=== PATIENT | female | born 1940 | race Caucasian/White ===

== ENCOUNTER 2017-09-16 07:40 | Emergency (ER) | payer MEDICARE, SELFPAY ==
[2017-09-16 07:55] VITALS: BP 157/100; PULSE 86; PULSE 98; RESP 18; TEMP 36.7; O2SAT 98; BMI 26.5
--- NOTE | 2017-09-16 08:12 | ED.EXTPRO ---
HPI - Extremity Problem General Chief complaint: Extremity Problem,Nontraumatic Stated complaint: PAIN IN LT SHOULDER Time Seen by Provider: 09/16/17 08:36 Source: patient Mode of arrival: ambulatory Limitations: no limitations History of Present Illness HPI Narrative: A 77-year-old female with no previous shoulder problems presents with posterior left shoulder pain after working in her garden doing significant amount of pruning this last weekend. Yesterday she felt a pinched nerve in the neck and through the night it became more concentrated in the back of her left shoulder and is worse with movement. She has no pain when not moving the arm. Pain radiates down into her forearm Complaint: extremity pain Onset (ago): day(s) Pain Consistency: intermittent Location: left Quality: aching Radiation: none Relieving factors: immobilization Exacerbating factors: range of motion Associated symptoms: denies other symptoms Related Data Home Medications Medication Instructions Recorded Confirmed CALCIUM/VITAMIN D (CALCIUM + D 1 tab PO #0 11/17/10 500MG/125UNITS) [EMBREL] #0 11/17/10 Previous Rx's Medication Instructions Recorded desloratadine 5 mg PO QDAY #90 tab 10/15/16 clindamycin phosphate 0 TOPICAL BID #60 ml 11/10/16 lovastatin 20 mg PO HS #30 tab 04/08/17 Disabled Parking Permit / . #1 06/28/17 cyanocobalamin (vitamin B-12) 1,000 mcg IM MONTHLY #3 ea 06/30/17 letrozole [Femara] 2.5 mg PO Q DAY #90 tab 07/25/17 Allergies Allergy/AdvReac Type Severity Reaction Status Date / Time tuberculin, purified protein Allergy Mild Rash Verified 09/16/17 08:56 deriva Sulfa (Sulfonamide AdvReac Mild GI UPSET Verified 09/16/17 08:04 Antibiotics) [SULFA (SULFONAMIDE ANTIBIOTICS)] Review of Systems Review of Systems All systems reviewed & are unremarkable except as noted in HPI and below PFSH Surgical History History of cataract removal with insertion of prosthetic lens Social History Smoking Status: Former smoker Exam Initial Vital Signs Initial Vital Signs: Vital Signs Temperature 98.0 F 09/16/17 07:55 Pulse Rate 98 H 09/16/17 07:55 Respiratory Rate 18 09/16/17 07:55 Blood Pressure 157/100 H 09/16/17 07:55 Pulse Oximetry 98 09/16/17 07:55 Const General: cooperative and well developed Nutritional Appearance: well nourished Orientation: alert, awake, oriented x3 and not confused [facility] Head: normocephalic and atraumatic Ears: external ears normal and TM's normal bilaterally Nose: external nose normal and No nasal discharge Face and sinus: sinuses nontender, face symmetric, no sinus tenderness and No dry mucous membranes Mouth: oral mucosae normal and moist mucous membranes Teeth and gingiva: dentition normal Throat: tonsils normal and uvula midline Eyes General: appearance normal, both eyes and all related structures Eyelids: eyelids normal Conjunctivae: conjunctivae normal Sclera: sclerae normal Pupils: PERRL EOM: EOM intact bilaterally Neck Neck: normal visual inspection, trachea midline, No lymphadenopathy, No midline deformity and No JVD Lymphatic: No lymphedema Chest Chest: normal inspection of the chest Resp Effort & Inspection: normal respiratory effort, able to speak in complete sentences, no respiratory distress and no use of accessory muscles Auscultation: clear to auscultation bilaterally, no rales, no rhonchi and no wheezes Cardio Rate: regular rate Rhythm: regular rhythm Heart Sounds: no click, no gallops, no murmurs and no rubs Pulses: normal peripheral pulses GI Inspection: non-distended Palpation: soft, no hepatosplenomegaly, No guarding, No pulsatile mass and No tender Auscultation: normal bowel sounds Back/Spine/Pelvis Back: No CVA tenderness Cervical Spine: cervical ROM normal and No pain with cervical ROM Thoracic/Lumbar Spine: thoracic and lumbar spine normal to inspection Skin General: no rashes or lesions noted, No jaundice and No petechiae Neuro General: alert, oriented x3, gait normal and no focal motor deficits Cranial Nerves: CN's II-XI intact bilaterally Speech: speech normal Motor: strength 5/5 throughout Sensory Exam: no sensory deficits noted Extrem General: full ROM, no clubbing, cyanosis or edema, no pedal edema and no calf tenderness Other: Left shoulder without swelling. Nontender to palpation over the AC joint. Rotator cuff is strong bilaterally to resistance noted. Positive impingement sign. Negative Spurling's test bilaterally Psych Appearance: well kempt Mental Status: mental status grossly normal Attitude: cooperative Thought Content: normal and suicidality Judgment: judgment good Course Orders Ordered: ED Orders 09/16/17 08:19 XR shoulder LT min 2V Stat Discontinued Medications Triamcinolone (Kenalog-40) 40 mg IM NOW ONE Stop: 09/16/17 08:54 Vital Signs - 8 hr 09/16/17 07:55 Temperature 98.0 F Pulse Rate 86 Pulse Rate [Left Radial] 98 H Respiratory Rate 18 Blood Pressure 157/100 H Pulse Oximetry 98 MDM - Extremity (Nontraumatic) Imaging Data shoulder xray: Radiologist's impression: PROCEDURE: XR SHOULDER LT MIN 2V INDICATIONS: Shoulder pain TECHNIQUE: 4 views of the shoulder were acquired. COMPARISON: None. FINDINGS: Bones: No fractures or dislocations. No suspicious bony lesions. There is mild sclerosis in the inferior glenoid neck that is nonspecific. Visualized ribs appear intact. Soft tissues: No suspicious soft tissue calcifications. IMPRESSION: No acute bony abnormality or soft tissue calcifications. Dictated by: Channing Rhodes M.D. on 09/16/2017 at 8:42 Approved by: Channing Rhodes M.D. on 09/16/2017 at 8:43 [facility] Narrative Medical decision making narrative: 77-year-old female presenting with left shoulder pain that is musculoskeletal in nature, worse with movement and better when not using her arm. Certain motions seem to exacerbate the pain and her exam is consistent with left shoulder impingement, likely irritated by her gardening/pruning work that she did through the weekend. Her x-ray shows no acute abnormality. A subacromial left shoulder injection was performed and there was improvement in her symptoms. Advised close primary care follow-up. Physical therapy may be of benefit to her. I do not suspect cervical radiculopathy based on her exam nor do I suspect any sort of acute coronary syndrome radiating to the left shoulder as it is exacerbated by only movement in certain positions. As there is not a template for the injection procedure please see the below note. Left subacromial shoulder injection Verbal consent was obtained from the patient. Lidocaine 1% 3 mL mixed with Kenalog 40 mg per mL, 1 mL was introduced into the left subacromial space and a fan like fashion from a posterior approach. Skin was cleansed with chlorhexidine prior to procedure. Adhesive bandage was placed when procedure was complete. Improvement was noted on re-evaluation of her shoulder. Discharge Plan Departure Patient Disposition: Home, Self-Care Clinical Impression: Impingement syndrome of left shoulder Instructions: DI for Shoulder Pain Activity Restrictions/Additional Instructions: Thank you for trusting is with your care today. I do not suspect a dangerous cause for your symptoms and believe that impingement is the cause of your left shoulder pain. Shoulder injection was performed today without complication. Please follow-up with your primary care within 1 week for re-evaluation. Physical therapy may be beneficial. Return to the ER for new or worsening symptoms. Prescriptions: No Action CALCIUM/VITAMIN D (CALCIUM + D 500MG/125UNITS) 1 tab PO Qty: 0 RF: 0 [EMBREL] Qty: 0 RF: 0 desloratadine 5 MG tablet 5 mg PO QDAY Qty: 90 RF: 3 clindamycin phosphate 1 % lotion Topical BID Qty: 60 RF: 0 lovastatin 20 MG tablet 20 mg PO HS Qty: 30 RF: 1 Disabled Parking Permit . Qty: 1 RF: 0 cyanocobalamin (vitamin B-12) 1,000 MCG/1 ML solution 1,000 mcg IM MONTHLY Qty: 3 RF: 1 letrozole [Femara] 2.5 MG tablet 2.5 mg PO Q DAY Qty: 90 RF: 2
--- NOTE | 2017-09-16 08:19 | DI.RAD.S_ITS ---
PROCEDURE: XR SHOULDER LT MIN 2V INDICATIONS: Shoulder pain TECHNIQUE: 4 views of the shoulder were acquired. COMPARISON: None. FINDINGS: Bones: No fractures or dislocations. No suspicious bony lesions. There is mild sclerosis in the inferior glenoid neck that is nonspecific. Visualized ribs appear intact. Soft tissues: No suspicious soft tissue calcifications. IMPRESSION: No acute bony abnormality or soft tissue calcifications. Dictated by: Channing Rhodes M.D. on 09/16/2017 at 8:42 Approved by: Channing Rhodes M.D. on 09/16/2017 at 8:43
[2017-09-16] MEDS: TRIAMCINOLONE 40 MG/ML VIAL IM (09:27)
[2017-09-16 09:44] VITALS: BP 146/84; PULSE 67; RESP 14; O2SAT 99
== END 2017-09-16 10:03 | disposition home or self-care (01) ==
PROVIDERS: Emergency Provider Emergency Medicine; PCP Family Medicine
DX: M75.42 Impingement syndrome of left shoulder (principal)
CPT/HCPCS: 73030; 96372; 99282; 99283

== ENCOUNTER → 2017-12-28 16:06 | Outpatient (CLI) | payer MEDICARE, SELFPAY ==
[2017-12-28 17:25] LABS: Add Manual Diff / Slide Review NO; Basophils Percent Auto 0.6 % (0-2); Eosinophils Percent Auto 1.1 % (2-4); Hematocrit 44.7 % (36-46); Hemoglobin 15.2 g/dL (12.0-16.0); Mean Corpuscular Hemoglobin 33.1 PG (26-34); Mean Corpuscular Volume 97.4 fL (80-100); Monocytes Percent Auto 8.3 % (3-14); Neutrophils Absolute Auto 3200 /uL (3000-5900); Platelet Count 186 X10^3/uL (150-400); Red Blood Cell Count 4.58 X10^6/uL (4.0-5.2); Red Cell Distribution Width 14.4 % (11.6-14.8); White Blood Cell Count 5.3 X10^3/uL (4.5-11.0)
[2017-12-28 18:09] LABS: Alanine Aminotransferase 19 IU/L (9-52); Albumin 4.4 g/dL (3.5-5.0); Albumin Globulin Ratio 1.4 (1.0-2.8); Alkaline Phosphatase 69 U/L (38-126); Aspartate Aminotransferase 36 IU/L (14-36); Blood Urea Nitrogen 20 mg/dL (7-17); Calcium 9.4 mg/dL (8.4-10.2); Carbon Dioxide 29 mmol/L (22-32); Chloride 104 mmol/L (98-107); Cholesterol 204 mg/dL (140-199); Estimated Glomerular Filt Rate > 60.0 mL/min (>60); Globulin 3.2 g/dL (1.7-4.1); Glucose 78 mg/dL (80-110); HDL Cholesterol 88 mg/dL (40-60); HEMOLYSIS < 15 (0-50); LDL Cholesterol Calculated 99 mg/dL (<100); Potassium 3.9 mmol/L (3.4-5.1); Sodium 143 mmol/L (137-145); Total Protein 7.6 g/dL (6.3-8.2); Triglycerides 86 mg/dL (35-150)
[2017-12-28 18:41] LABS: Thyroid Stimulating Hormone 0.79 uIU/mL (0.47-4.68)
[2017-12-28 18:58] LABS: Vitamin B12 635 pg/mL (239-931)
== END ==
PROVIDERS: PCP Family Medicine; Visit Provider Family Medicine
DX: E78.2 Mixed hyperlipidemia (principal); I10 Essential (primary) hypertension
CPT/HCPCS: 36415; 80053; 80061; 82607; 84443; 85025

== ENCOUNTER → 2018-02-16 10:34 | Outpatient (CLI) | payer MEDICARE, SELFPAY ==
[2018-02-16 11:50] LABS: Alanine Aminotransferase 23 IU/L (9-52); Albumin 4.1 g/dL (3.5-5.0); Albumin Globulin Ratio 1.4 (1.0-2.8); Alkaline Phosphatase 68 U/L (38-126); Aspartate Aminotransferase 29 IU/L (14-36); BUN Creatinine Ratio 22.5 (6-22); Bilirubin Total 0.8 mg/dL (0.2-1.3); Blood Urea Nitrogen 18 mg/dL (7-17); Calcium 9.3 mg/dL (8.4-10.2); Carbon Dioxide 29 mmol/L (22-32); Chloride 106 mmol/L (98-107); Estimated Glomerular Filt Rate > 60.0 mL/min (>60); Glucose 66 mg/dL (80-110); HEMOLYSIS < 15 (0-50); Potassium 4.3 mmol/L (3.4-5.1); Sodium 145 mmol/L (137-145); Total Protein 7.1 g/dL (6.3-8.2)
== END ==
PROVIDERS: PCP Family Medicine; Visit Provider Internal Medicine Rheumatology
DX: Z79.899 Other long term (current) drug therapy (principal); M05.9 Rheumatoid arthritis with rheumatoid factor, unspecified
CPT/HCPCS: 36415; 80053

== ENCOUNTER → 2018-03-15 08:00 | Outpatient (CLI) | payer MEDICARE, SELFPAY | PROVIDERS: PCP Family Medicine | DX: Z23 Encounter for immunization (principal) | CPT/HCPCS: 90471; 90662 ==

== ENCOUNTER → 2018-08-11 07:35 | Outpatient (CLI) | payer MEDICARE, SELFPAY ==
--- NOTE | 2018-08-11 | DI.MG.S_ITS ---
BILATERAL DIGITAL SCREENING MAMMOGRAM 3D/2D WITH CAD POST LUMPECTOMY: 08/11/2018 CLINICAL: Routine screening. Personal history of right breast cancer. Comparison is made to exams dated: 08/03/2017 mammogram, 07/26/2016 mammogram, and 07/22/2015 mammogram - [facility]. There are scattered fibroglandular elements in both breasts. Current study was also evaluated with a Computer Aided Detection (CAD) system. There are benign post operative findings in the right breast. There also are benign calcifications in both breasts. No significant masses, calcifications, or other findings are seen in either breast. There has been no significant interval change. IMPRESSION: There is no mammographic evidence of malignancy. A 1 year screening mammogram is recommended. This exam was interpreted at Station ID: [id number]. NOTE: For mammograms, a report in lay terms will be sent to the patient. Approximately 15% of breast malignancies will not be visualized mammographically. In the management of a palpable breast mass, a negative mammogram must not discourage biopsy of a clinically suspicious lesion. Electronically Signed By: Tariq parkinson/gosia:08/11/2018 19:33:50 copy to: Ryan Rodney letter sent: Normal Exam ACR BI-RADS Category 2: Benign Finding(s) 3342F
== END ==
PROVIDERS: PCP Family Medicine; Visit Provider Family Medicine
DX: Z12.31 Encounter for screening mammogram for malignant neoplasm of breast (principal); Z85.3 Personal history of malignant neoplasm of breast
CPT/HCPCS: 77063; 77067

== ENCOUNTER → 2018-09-06 08:27 | Outpatient (CLI) | payer MEDICARE, SELFPAY ==
[2018-09-06 10:13] LABS: Add Manual Diff / Slide Review NO; Basophils Absolute Auto 0 /uL (0-100); Basophils Percent Auto 1.2 % (0-2); Eosinophils Absolute Auto 100 /uL (0-450); Lymphocytes Absolute Auto 1200 /uL (1100-4500); Mean Corpuscular HGB Conc 33.4 % (30-36); Mean Corpuscular Volume 95.8 fL (80-100); Monocytes Absolute Auto 300 /uL (0-900); Monocytes Percent Auto 9.6 % (3-14); Neutrophils Absolute Auto 1700 /uL (1500-7000); Neutrophils Percent Auto 52.2 % (50-75); Platelet Count 178 X10^3/uL (150-400); Red Cell Distribution Width 14.5 % (11.6-14.8); White Blood Cell Count 3.3 X10^3/uL (4.5-11.0)
[2018-09-06 10:46] LABS: Alanine Aminotransferase 19 IU/L (9-52); Albumin 4.1 g/dL (3.5-5.0); Albumin Globulin Ratio 1.5 (1.0-2.8); Alkaline Phosphatase 73 U/L (38-126); Aspartate Aminotransferase 25 IU/L (14-36); BUN Creatinine Ratio 25.7 (6-22); Bilirubin Total 0.9 mg/dL (0.2-1.3); Blood Urea Nitrogen 18 mg/dL (7-17); Calcium 9.3 mg/dL (8.4-10.2); Carbon Dioxide 28 mmol/L (22-32); Chloride 105 mmol/L (98-107); Estimated Glomerular Filt Rate > 60.0 mL/min (>60); Globulin 2.8 g/dL (1.7-4.1); Glucose 87 mg/dL (80-110); HEMOLYSIS < 15 (0-50); Potassium 4.6 mmol/L (3.4-5.1); Sodium 140 mmol/L (137-145); Total Protein 6.9 g/dL (6.3-8.2)
[2018-09-06 10:49] LABS: C-Reactive Protein Quant < 0.5 mg/dL (<1.0)
[2018-09-06 10:53] LABS: Erythrocyte Sedimentation Rate 12 MM/HR (0-20)
== END ==
PROVIDERS: Family Provider Family Medicine; PCP Family Medicine; Visit Provider Internal Medicine Rheumatology
DX: M05.9 Rheumatoid arthritis with rheumatoid factor, unspecified (principal)
CPT/HCPCS: 36415; 80053; 85025; 85651; 86140

== ENCOUNTER → 2018-10-05 09:06 | Outpatient (CLI) | payer MEDICARE, SELFPAY ==
[2018-10-05 09:35] LABS: Add Manual Diff / Slide Review NO; Basophils Absolute Auto 0 /uL (0-100); Basophils Percent Auto 1.3 % (0-2); Eosinophils Absolute Auto 100 /uL (0-450); Eosinophils Percent Auto 3.2 % (2-4); Hematocrit 44.2 % (36-46); Hemoglobin 14.9 g/dL (12.0-16.0); Lymphocytes Absolute Auto 1000 /uL (1100-4500); Lymphocytes Percent Auto 33.3 % (25-40); Mean Corpuscular HGB Conc 33.7 % (30-36); Monocytes Absolute Auto 300 /uL (0-900); Monocytes Percent Auto 10.7 % (3-14); Neutrophils Absolute Auto 1600 /uL (1500-7000); Neutrophils Percent Auto 51.5 % (50-75); Platelet Count 173 X10^3/uL (150-400); Red Blood Cell Count 4.66 X10^6/uL (4.0-5.2); Red Cell Distribution Width 14.4 % (11.6-14.8); White Blood Cell Count 3.1 X10^3/uL (4.5-11.0)
[2018-10-05 09:49] LABS: Alanine Aminotransferase 18 IU/L (9-52); Albumin 4.2 g/dL (3.5-5.0); Albumin Globulin Ratio 1.3 (1.0-2.8); Alkaline Phosphatase 71 U/L (38-126); Aspartate Aminotransferase 25 IU/L (14-36); BUN Creatinine Ratio 22.9 (6-22); Bilirubin Total 0.9 mg/dL (0.2-1.3); Blood Urea Nitrogen 16 mg/dL (7-17); Calcium 9.5 mg/dL (8.4-10.2); Carbon Dioxide 30 mmol/L (22-32); Chloride 104 mmol/L (98-107); Estimated Glomerular Filt Rate > 60.0 mL/min (>60); Globulin 3.2 g/dL (1.7-4.1); Glucose 78 mg/dL (80-110); HEMOLYSIS < 15 (0-50); Potassium 4.1 mmol/L (3.4-5.1); Sodium 141 mmol/L (137-145); Total Protein 7.4 g/dL (6.3-8.2)
[2018-10-05 10:49] LABS: Hepatitis B Surface Antigen NEGATIVE s/c (NEGATIVE)
[2018-10-05 11:09] LABS: Hep C Virus Ab w/Reflex Quant NEGATIVE s/c (NEGATIVE)
[2018-10-08 10:18] LABS: Mitogen-NIL 7.76 IU/mL; NIL 0.04 IU/mL; QuantiFERON TB NEGATIVE (Negative); TB1-NIL < 0.01 IU/mL; TB2-NIL < 0.01 IU/mL
== END ==
PROVIDERS: Family Provider Family Medicine; PCP Family Medicine; Visit Provider Internal Medicine Rheumatology
DX: M05.79 Rheumatoid arthritis with rheumatoid factor of multiple sites without organ or systems involvement (principal)
CPT/HCPCS: 36415; 80053; 85025; 86480; 86803; 87340

== ENCOUNTER → 2018-10-30 10:27 | Outpatient (CLI) | payer MEDICARE, SELFPAY ==
--- NOTE | 2018-10-30 | DI.RAD.S_ITS ---
PROCEDURE: XR CHEST 2V INDICATIONS: COUGH TECHNIQUE: 2 views of the chest were acquired. COMPARISON: [facility], , CHEST 2 VIEW, 02/22/2011, 11:58. FINDINGS: Surgical changes and devices: None. Lungs and pleura: Lungs are clear. No pleural effusions or pneumothorax. Mediastinum: Mediastinal contours are normal. Heart size is normal. Bones and chest wall: No suspicious bony abnormalities. Soft tissues appear unremarkable. IMPRESSION: No acute disease Dictated by: Shravan Aguilar M.D. on 10/30/2018 at 13:11 Approved by: Shravan Aguilar M.D. on 10/30/2018 at 13:12
== END ==
PROVIDERS: PCP Family Medicine; Visit Provider Internal Medicine Rheumatology
DX: R05 Cough (principal)
CPT/HCPCS: 71046

== ENCOUNTER → 2018-11-08 07:17 | Outpatient (CLI) | payer MEDICARE, SELFPAY ==
[2018-11-08 07:53] LABS: Add Manual Diff / Slide Review NO; Basophils Absolute Auto 0 /uL (0-100); Basophils Percent Auto 0.8 % (0-2); Eosinophils Absolute Auto 100 /uL (0-450); Eosinophils Percent Auto 2.4 % (2-4); Hematocrit 43.3 % (36-46); Hemoglobin 14.8 g/dL (12.0-16.0); Lymphocytes Absolute Auto 1200 /uL (1100-4500); Lymphocytes Percent Auto 26.3 % (25-40); Mean Corpuscular HGB Conc 34.1 % (30-36); Mean Corpuscular Hemoglobin 31.9 PG (26-34); Mean Corpuscular Volume 93.6 fL (80-100); Monocytes Absolute Auto 400 /uL (0-900); Monocytes Percent Auto 8.4 % (3-14); Neutrophils Absolute Auto 2800 /uL (1500-7000); Neutrophils Percent Auto 62.1 % (50-75); Platelet Count 197 X10^3/uL (150-400); Red Blood Cell Count 4.63 X10^6/uL (4.0-5.2); White Blood Cell Count 4.5 X10^3/uL (4.5-11.0)
[2018-11-08 08:15] LABS: Erythrocyte Sedimentation Rate 23 MM/HR (0-20)
[2018-11-08 08:17] LABS: Alanine Aminotransferase 12 IU/L (9-52); Albumin Globulin Ratio 1.3 (1.0-2.8); Alkaline Phosphatase 77 U/L (38-126); Aspartate Aminotransferase 20 IU/L (14-36); Bilirubin Total 0.9 mg/dL (0.2-1.3); Blood Urea Nitrogen 21 mg/dL (7-17); C-Reactive Protein Quant 0.6 mg/dL (<1.0); Calcium 9.5 mg/dL (8.4-10.2); Carbon Dioxide 23 mmol/L (22-32); Chloride 110 mmol/L (98-107); Estimated Glomerular Filt Rate > 60.0 mL/min (>60); Globulin 3.1 g/dL (1.7-4.1); Glucose 90 mg/dL (80-110); HEMOLYSIS < 15 (0-50); Potassium 4.3 mmol/L (3.4-5.1); Sodium 142 mmol/L (137-145); Total Protein 7.1 g/dL (6.3-8.2)
== END ==
PROVIDERS: Family Provider Family Medicine; PCP Family Medicine; Visit Provider Internal Medicine Rheumatology
DX: M05.9 Rheumatoid arthritis with rheumatoid factor, unspecified (principal)
CPT/HCPCS: 36415; 80053; 85025; 85651; 86140

== ENCOUNTER → 2018-11-29 09:37 | Outpatient (CLI) | payer MEDICARE, SELFPAY | PROVIDERS: Family Provider Family Medicine; PCP Family Medicine; Visit Provider Family Medicine | DX: M81.0 Age-related osteoporosis without current pathological fracture (principal); M85.80 Other specified disorders of bone density and structure, unspecified site; Z78.0 Asymptomatic menopausal state | CPT/HCPCS: 77080 ==

== ENCOUNTER → 2019-01-03 08:45 | Outpatient (CLI) | payer MEDICARE, SELFPAY ==
[2019-01-03 09:12] LABS: Add Manual Diff / Slide Review NO; Basophils Absolute Auto 0 /uL (0-100); Basophils Percent Auto 0.8 % (0-2); Eosinophils Absolute Auto 100 /uL (0-450); Eosinophils Percent Auto 1.9 % (2-4); Hematocrit 42.1 % (36-46); Hemoglobin 14.5 g/dL (12.0-16.0); Lymphocytes Absolute Auto 1100 /uL (1100-4500); Lymphocytes Percent Auto 33.4 % (25-40); Mean Corpuscular HGB Conc 34.5 % (30-36); Mean Corpuscular Hemoglobin 32.6 PG (26-34); Mean Corpuscular Volume 94.6 fL (80-100); Monocytes Absolute Auto 300 /uL (0-900); Monocytes Percent Auto 7.9 % (3-14); Neutrophils Absolute Auto 1800 /uL (1500-7000); Platelet Count 183 X10^3/uL (150-400); Red Blood Cell Count 4.45 X10^6/uL (4.0-5.2); Red Cell Distribution Width 14.7 % (11.6-14.8); White Blood Cell Count 3.2 X10^3/uL (4.5-11.0)
[2019-01-03 09:25] LABS: C-Reactive Protein Quant 0.5 mg/dL (<1.0)
[2019-01-03 10:11] LABS: Erythrocyte Sedimentation Rate 21 MM/HR (0-20)
== END ==
PROVIDERS: PCP Family Medicine; Visit Provider Internal Medicine Rheumatology
DX: M05.9 Rheumatoid arthritis with rheumatoid factor, unspecified (principal); Z79.899 Other long term (current) drug therapy
CPT/HCPCS: 36415; 85025; 85651; 86140

== ENCOUNTER → 2019-02-03 08:40 | Outpatient (CLI) | payer MEDICARE, SELFPAY ==
[2019-02-03 09:48] LABS: Add Manual Diff / Slide Review NO; Basophils Absolute Auto 0 /uL (0-100); Basophils Percent Auto 0.5 % (0-2); Eosinophils Absolute Auto 0 /uL (0-450); Eosinophils Percent Auto 0.7 % (2-4); Hematocrit 44.2 % (36-46); Hemoglobin 14.8 g/dL (12.0-16.0); Lymphocytes Absolute Auto 2200 /uL (1100-4500); Lymphocytes Percent Auto 42.7 % (25-40); Mean Corpuscular HGB Conc 33.6 % (30-36); Mean Corpuscular Hemoglobin 32.4 PG (26-34); Mean Corpuscular Volume 96.6 fL (80-100); Monocytes Absolute Auto 400 /uL (0-900); Monocytes Percent Auto 7.7 % (3-14); Neutrophils Absolute Auto 2500 /uL (1500-7000); Neutrophils Percent Auto 48.4 % (50-75); Platelet Count 190 X10^3/uL (150-400); Red Blood Cell Count 4.57 X10^6/uL (4.0-5.2); White Blood Cell Count 5.2 X10^3/uL (4.5-11.0)
== END ==
PROVIDERS: Family Provider Family Medicine; PCP Family Medicine; Visit Provider Internal Medicine Rheumatology
DX: M05.79 Rheumatoid arthritis with rheumatoid factor of multiple sites without organ or systems involvement (principal); Z79.899 Other long term (current) drug therapy
CPT/HCPCS: 36415; 85025

== ENCOUNTER → 2019-02-08 18:03 | Outpatient (CLI) | payer MEDICARE, SELFPAY | PROVIDERS: PCP Family Medicine | DX: Z23 Encounter for immunization (principal) | CPT/HCPCS: 90471; 90662 ==

== ENCOUNTER → 2019-02-28 08:22 | Outpatient (CLI) | payer MEDICARE, SELFPAY ==
[2019-02-28 09:39] LABS: Add Manual Diff / Slide Review NO; Basophils Absolute Auto 0 /uL (0-100); Eosinophils Absolute Auto 100 /uL (0-450); Eosinophils Percent Auto 1.7 % (2-4); Hematocrit 45.6 % (36-46); Hemoglobin 15.3 g/dL (12.0-16.0); Lymphocytes Absolute Auto 1200 /uL (1100-4500); Lymphocytes Percent Auto 25.4 % (25-40); Mean Corpuscular HGB Conc 33.5 % (30-36); Mean Corpuscular Hemoglobin 32.3 PG (26-34); Mean Corpuscular Volume 96.6 fL (80-100); Monocytes Absolute Auto 400 /uL (0-900); Monocytes Percent Auto 8.1 % (3-14); Neutrophils Absolute Auto 3000 /uL (1500-7000); Neutrophils Percent Auto 63.8 % (50-75); Platelet Count 193 X10^3/uL (150-400); Red Blood Cell Count 4.72 X10^6/uL (4.0-5.2); Red Cell Distribution Width 14.4 % (11.6-14.8); White Blood Cell Count 4.7 X10^3/uL (4.5-11.0)
[2019-02-28 09:56] LABS: Alanine Aminotransferase 25 IU/L (9-52); Albumin 4.2 g/dL (3.5-5.0); Albumin Globulin Ratio 1.4 (1.0-2.8); Alkaline Phosphatase 74 U/L (38-126); Aspartate Aminotransferase 34 IU/L (14-36); BUN Creatinine Ratio 22.9 (6-22); Bilirubin Total 0.8 mg/dL (0.2-1.3); Blood Urea Nitrogen 16 mg/dL (7-17); C-Reactive Protein Quant 0.9 mg/dL (<1.0); Calcium 9.6 mg/dL (8.4-10.2); Carbon Dioxide 32 mmol/L (22-32); Chloride 103 mmol/L (98-107); Estimated Glomerular Filt Rate > 60.0 mL/min (>60); Globulin 3.1 g/dL (1.7-4.1); Glucose 85 mg/dL (80-110); HEMOLYSIS < 15 (0-50); Sodium 140 mmol/L (137-145); Total Protein 7.3 g/dL (6.3-8.2)
[2019-02-28 10:24] LABS: Erythrocyte Sedimentation Rate 18 MM/HR (0-20)
== END ==
PROVIDERS: PCP Family Medicine; Visit Provider Internal Medicine Rheumatology
DX: M05.79 Rheumatoid arthritis with rheumatoid factor of multiple sites without organ or systems involvement (principal)
CPT/HCPCS: 36415; 80053; 85025; 85651; 86140

== ENCOUNTER → 2019-05-19 09:49 | Outpatient (CLI) | payer MEDICARE, SELFPAY ==
[2019-05-19 11:02] LABS: Add Manual Diff / Slide Review NO; Basophils Absolute Auto 0 /uL (0-100); Basophils Percent Auto 0.5 % (0-2); Eosinophils Absolute Auto 0 /uL (0-450); Eosinophils Percent Auto 0.4 % (2-4); Hematocrit 42.9 % (36-46); Hemoglobin 14.4 g/dL (12.0-16.0); Lymphocytes Absolute Auto 600 /uL (1100-4500); Lymphocytes Percent Auto 10.4 % (25-40); Mean Corpuscular HGB Conc 33.7 % (30-36); Mean Corpuscular Hemoglobin 32.5 PG (26-34); Mean Corpuscular Volume 96.6 fL (80-100); Monocytes Absolute Auto 400 /uL (0-900); Monocytes Percent Auto 6.5 % (3-14); Neutrophils Absolute Auto 4700 /uL (1500-7000); Neutrophils Percent Auto 82.2 % (50-75); Platelet Count 173 X10^3/uL (150-400); Red Blood Cell Count 4.45 X10^6/uL (4.0-5.2); Red Cell Distribution Width 13.9 % (11.6-14.8); White Blood Cell Count 5.7 X10^3/uL (4.5-11.0)
[2019-05-19 11:24] LABS: Alanine Aminotransferase 22 IU/L (<35); Albumin 4.1 g/dL (3.5-5.0); Albumin Globulin Ratio 1.3 (1.0-2.8); Alkaline Phosphatase 90 U/L (38-126); Aspartate Aminotransferase 29 IU/L (14-36); BUN Creatinine Ratio 23.3 (6-22); Bilirubin Total 0.8 mg/dL (0.2-1.3); Blood Urea Nitrogen 14 mg/dL (7-17); Calcium 9.3 mg/dL (8.4-10.2); Carbon Dioxide 27 mmol/L (22-32); Chloride 107 mmol/L (98-107); Estimated Glomerular Filt Rate > 60.0 mL/min (>60); Globulin 3.1 g/dL (1.7-4.1); Glucose 92 mg/dL (80-110); HEMOLYSIS < 15 (0-50); Potassium 3.9 mmol/L (3.4-5.1); Sodium 140 mmol/L (137-145); Total Protein 7.2 g/dL (6.3-8.2)
[2019-05-19 11:25] LABS: C-Reactive Protein Quant < 0.5 mg/dL (<1.0)
[2019-05-19 12:30] LABS: Erythrocyte Sedimentation Rate 12 MM/HR (0-20)
== END ==
PROVIDERS: PCP Family Medicine; Visit Provider Nurse Practitioner
DX: M05.79 Rheumatoid arthritis with rheumatoid factor of multiple sites without organ or systems involvement (principal)
CPT/HCPCS: 36415; 80053; 85025; 85651; 86140

== ENCOUNTER → 2019-07-13 06:37 | Outpatient (CLI) | payer MEDICARE, SELFPAY ==
[2019-07-13 08:11] LABS: Add Manual Diff / Slide Review NO; Basophils Absolute Auto 0 /uL (0-100); Basophils Percent Auto 1.2 % (0-2); Eosinophils Absolute Auto 100 /uL (0-450); Eosinophils Percent Auto 4.2 % (2-4); Hematocrit 42.6 % (36-46); Hemoglobin 14.2 g/dL (12.0-16.0); Lymphocytes Absolute Auto 1000 /uL (1100-4500); Lymphocytes Percent Auto 31.8 % (25-40); Mean Corpuscular HGB Conc 33.3 % (30-36); Mean Corpuscular Hemoglobin 32.4 PG (26-34); Mean Corpuscular Volume 97.4 fL (80-100); Monocytes Absolute Auto 300 /uL (0-900); Monocytes Percent Auto 8.6 % (3-14); Neutrophils Absolute Auto 1600 /uL (1500-7000); Neutrophils Percent Auto 54.2 % (50-75); Platelet Count 186 X10^3/uL (150-400); Red Blood Cell Count 4.37 X10^6/uL (4.0-5.2); Red Cell Distribution Width 14.8 % (11.6-14.8)
[2019-07-13 08:30] LABS: Alanine Aminotransferase 16 IU/L (<35); Albumin 4.1 g/dL (3.5-5.0); Albumin Globulin Ratio 1.4 (1.0-2.8); Alkaline Phosphatase 71 U/L (38-126); Aspartate Aminotransferase 26 IU/L (14-36); BUN Creatinine Ratio 21.1 (6-22); Bilirubin Total 1.2 mg/dL (0.2-1.3); Blood Urea Nitrogen 15 mg/dL (7-17); Calcium 9.5 mg/dL (8.4-10.2); Carbon Dioxide 26 mmol/L (22-32); Chloride 107 mmol/L (98-107); Estimated Glomerular Filt Rate > 60.0 mL/min (>60); Glucose 102 mg/dL (80-110); HEMOLYSIS < 15 (0-50); Potassium 3.9 mmol/L (3.4-5.1); Sodium 139 mmol/L (137-145); Total Protein 7.1 g/dL (6.3-8.2)
[2019-07-13 08:33] LABS: C-Reactive Protein Quant < 0.5 mg/dL (<1.0)
[2019-07-13 08:40] LABS: Erythrocyte Sedimentation Rate 17 MM/HR (0-20)
== END ==
PROVIDERS: PCP Family Medicine; Referring Provider Physician Assistant Medical; Visit Provider Physician Assistant Medical
DX: M05.9 Rheumatoid arthritis with rheumatoid factor, unspecified (principal)
CPT/HCPCS: 36415; 80053; 85025; 85651; 86140

== ENCOUNTER → 2019-09-03 06:56 | Outpatient (CLI) | payer MEDICARE, SELFPAY ==
[2019-09-03 07:52] LABS: Add Manual Diff / Slide Review NO; Basophils Absolute Auto 0 /uL (0-100); Basophils Percent Auto 0.9 % (0-2); Eosinophils Absolute Auto 100 /uL (0-450); Eosinophils Percent Auto 2.1 % (2-4); Hematocrit 41.7 % (36-46); Hemoglobin 13.9 g/dL (12.0-16.0); Lymphocytes Absolute Auto 1100 /uL (1100-4500); Lymphocytes Percent Auto 31.8 % (25-40); Mean Corpuscular HGB Conc 33.5 % (30-36); Mean Corpuscular Volume 98.5 fL (80-100); Monocytes Absolute Auto 300 /uL (0-900); Monocytes Percent Auto 8.6 % (3-14); Neutrophils Absolute Auto 2000 /uL (1500-7000); Neutrophils Percent Auto 56.6 % (50-75); Platelet Count 178 X10^3/uL (150-400); Red Blood Cell Count 4.23 X10^6/uL (4.0-5.2); White Blood Cell Count 3.5 X10^3/uL (4.5-11.0)
[2019-09-03 08:05] LABS: Alanine Aminotransferase 14 IU/L (<35); Albumin 4.2 g/dL (3.5-5.0); Albumin Globulin Ratio 1.4 (1.0-2.8); Alkaline Phosphatase 67 U/L (38-126); Aspartate Aminotransferase 28 IU/L (14-36); Bilirubin Total 0.9 mg/dL (0.2-1.3); Blood Urea Nitrogen 14 mg/dL (7-17); Calcium 9.3 mg/dL (8.4-10.2); Carbon Dioxide 25 mmol/L (22-32); Chloride 108 mmol/L (98-107); Estimated Glomerular Filt Rate > 60.0 mL/min (>60); Glucose 100 mg/dL (80-110); HEMOLYSIS < 15 (0-50); Sodium 140 mmol/L (137-145); Total Protein 7.2 g/dL (6.3-8.2)
[2019-09-03 08:07] LABS: C-Reactive Protein Quant < 0.5 mg/dL (<1.0)
[2019-09-03 08:10] LABS: Erythrocyte Sedimentation Rate 13 MM/HR (0-20)
== END ==
PROVIDERS: PCP Family Medicine; Referring Provider Physician Assistant Medical; Visit Provider Physician Assistant Medical
DX: M05.9 Rheumatoid arthritis with rheumatoid factor, unspecified (principal)
CPT/HCPCS: 36415; 80053; 85025; 85651; 86140

== ENCOUNTER → 2019-09-26 08:37 | Outpatient (CLI) | payer MEDICARE, SELFPAY ==
--- NOTE | 2019-09-26 | DI.MG.S_ITS ---
BILATERAL DIGITAL SCREENING MAMMOGRAM 3D/2D WITH CAD POST LUMPECTOMY: 09/26/2019 CLINICAL: Routine screening. Personal history of right breast cancer. Comparison is made to exams dated: 08/11/2018 mammogram, 08/03/2017 mammogram, and 07/26/2016 mammogram - [facility]. There are scattered fibroglandular elements in both breasts. Current study was also evaluated with a Computer Aided Detection (CAD) system. There are benign calcifications in both breasts. There also are benign vascular calcifications in the left breast. Additionally, there are benign post operative findings in the right breast. No significant masses, calcifications, or other findings are seen in either breast. There has been no significant interval change. IMPRESSION: There is no mammographic evidence of malignancy. A 1 year screening mammogram is recommended. This exam was interpreted at Station ID: [id number]. NOTE: For mammograms, a report in lay terms will be sent to the patient. Approximately 15% of breast malignancies will not be visualized mammographically. In the management of a palpable breast mass, a negative mammogram must not discourage biopsy of a clinically suspicious lesion. Electronically Signed By: Willa singh/gosia:09/26/2019 09:25:26 copy to: Ryan Rodney letter sent: Normal Exam ACR BI-RADS Category 2: Benign Finding(s) 3342F
== END ==
PROVIDERS: PCP Family Medicine; Referring Provider Family Medicine; Visit Provider Family Medicine
DX: Z12.31 Encounter for screening mammogram for malignant neoplasm of breast (principal); Z85.3 Personal history of malignant neoplasm of breast
CPT/HCPCS: 77063; 77067

== ENCOUNTER → 2020-01-08 06:54 | Outpatient (CLI) | payer MEDICARE, SELFPAY ==
[2020-01-08 07:17] LABS: Add Manual Diff / Slide Review NO; Basophils Absolute Auto 0 /uL (0-100); Basophils Percent Auto 1.4 % (0-2); Eosinophils Absolute Auto 100 /uL (0-450); Eosinophils Percent Auto 2.1 % (2-4); Hematocrit 41.9 % (36-46); Hemoglobin 14.2 g/dL (12.0-16.0); Lymphocytes Absolute Auto 1000 /uL (1100-4500); Lymphocytes Percent Auto 32.3 % (25-40); Mean Corpuscular HGB Conc 33.8 % (30-36); Mean Corpuscular Hemoglobin 33.8 PG (26-34); Mean Corpuscular Volume 99.8 fL (80-100); Monocytes Absolute Auto 200 /uL (0-900); Monocytes Percent Auto 7.1 % (3-14); Neutrophils Absolute Auto 1800 /uL (1500-7000); Neutrophils Percent Auto 57.1 % (50-75); Platelet Count 172 X10^3/uL (150-400); Red Cell Distribution Width 15.3 % (11.6-14.8); White Blood Cell Count 3.2 X10^3/uL (4.5-11.0)
[2020-01-08 07:29] LABS: Alanine Aminotransferase 13 IU/L (<35); Albumin 3.9 g/dL (3.5-5.0); Albumin Globulin Ratio 1.4 (1.0-2.8); Alkaline Phosphatase 58 U/L (38-126); Aspartate Aminotransferase 23 IU/L (14-36); Bilirubin Total 0.9 mg/dL (0.2-1.3); Blood Urea Nitrogen 18 mg/dL (7-17); Calcium 8.9 mg/dL (8.4-10.2); Carbon Dioxide 29 mmol/L (22-32); Chloride 109 mmol/L (98-107); Estimated Glomerular Filt Rate > 60.0 mL/min (>60); Globulin 2.8 g/dL (1.7-4.1); Glucose 94 mg/dL (80-110); HEMOLYSIS < 15 (0-50); Potassium 4.4 mmol/L (3.4-5.1); Sodium 139 mmol/L (137-145); Total Protein 6.7 g/dL (6.3-8.2)
[2020-01-08 07:32] LABS: C-Reactive Protein Quant < 0.5 mg/dL (<1.0)
[2020-01-08 08:05] LABS: Erythrocyte Sedimentation Rate 11 MM/HR (0-20)
== END ==
PROVIDERS: PCP Family Medicine; Referring Provider Physician Assistant Medical; Visit Provider Physician Assistant Medical
DX: I10 Essential (primary) hypertension (principal)
CPT/HCPCS: 36415; 80053; 85025; 85651; 86140

== ENCOUNTER → 2020-02-27 09:48 | Outpatient (CLI) | payer MEDICARE, SELFPAY ==
[2020-02-27 13:11] LABS: Cholesterol 179 mg/dL (140-199); HDL Cholesterol 89 mg/dL (40-60); LDL Cholesterol Calculated 71 mg/dL (<100); Triglycerides 96 mg/dL (35-150)
== END ==
PROVIDERS: PCP Family Medicine; Referring Provider Family Medicine; Visit Provider Family Medicine
DX: E78.2 Mixed hyperlipidemia (principal)
CPT/HCPCS: 36415; 80061

== ENCOUNTER → 2020-03-31 07:07 | Outpatient (CLI) | payer MEDICARE, SELFPAY ==
[2020-03-31 08:11] LABS: Add Manual Diff / Slide Review NO; Basophils Absolute Auto 0 /uL (0-100); Eosinophils Absolute Auto 100 /uL (0-450); Eosinophils Percent Auto 1.9 % (2-4); Hematocrit 42.7 % (36-46); Hemoglobin 14.3 g/dL (12.0-16.0); Lymphocytes Absolute Auto 1100 /uL (1100-4500); Lymphocytes Percent Auto 31.8 % (25-40); Mean Corpuscular HGB Conc 33.4 % (30-36); Mean Corpuscular Hemoglobin 33.1 PG (26-34); Monocytes Absolute Auto 300 /uL (0-900); Neutrophils Absolute Auto 2000 /uL (1500-7000); Neutrophils Percent Auto 57.3 % (50-75); Platelet Count 174 X10^3/uL (150-400); Red Blood Cell Count 4.32 X10^6/uL (4.0-5.2); Red Cell Distribution Width 14.6 % (11.6-14.8); White Blood Cell Count 3.5 X10^3/uL (4.5-11.0)
[2020-03-31 08:33] LABS: Alanine Aminotransferase 14 IU/L (<35); Albumin 3.8 g/dL (3.5-5.0); Albumin Globulin Ratio 1.4 (1.0-2.8); Alkaline Phosphatase 66 U/L (38-126); Aspartate Aminotransferase 24 IU/L (14-36); BUN Creatinine Ratio 24.7 (6-22); Bilirubin Total 0.9 mg/dL (0.2-1.3); Blood Urea Nitrogen 18 mg/dL (7-17); Carbon Dioxide 31 mmol/L (22-32); Chloride 107 mmol/L (98-107); Estimated Glomerular Filt Rate > 60.0 mL/min (>60); Globulin 2.7 g/dL (1.7-4.1); Glucose 92 mg/dL (80-110); HEMOLYSIS < 15 (0-50); Potassium 4.4 mmol/L (3.4-5.1); Sodium 139 mmol/L (137-145); Total Protein 6.5 g/dL (6.3-8.2)
[2020-03-31 08:38] LABS: Erythrocyte Sedimentation Rate 11 MM/HR (0-20)
[2020-03-31 08:42] LABS: C-Reactive Protein Quant < 0.5 mg/dL (<1.0)
== END ==
PROVIDERS: PCP Family Medicine; Referring Provider Physician Assistant Medical; Visit Provider Physician Assistant Medical
DX: M05.9 Rheumatoid arthritis with rheumatoid factor, unspecified (principal)
CPT/HCPCS: 36415; 80053; 85025; 85651; 86140

== ENCOUNTER → 2020-06-27 06:58 | Outpatient (CLI) | payer MEDICARE, SELFPAY ==
[2020-06-27 07:33] LABS: Add Manual Diff / Slide Review NO; Basophils Absolute Auto 0 /uL (0-100); Basophils Percent Auto 1.1 % (0-2); Eosinophils Absolute Auto 100 /uL (0-450); Eosinophils Percent Auto 3.7 % (2-4); Hematocrit 41.8 % (36-46); Hemoglobin 13.9 g/dL (12.0-16.0); Lymphocytes Absolute Auto 900 /uL (1100-4500); Lymphocytes Percent Auto 26.5 % (25-40); Mean Corpuscular HGB Conc 33.1 % (30-36); Mean Corpuscular Hemoglobin 32.7 PG (26-34); Mean Corpuscular Volume 98.6 fL (80-100); Monocytes Absolute Auto 300 /uL (0-900); Monocytes Percent Auto 9.7 % (3-14); Neutrophils Absolute Auto 1900 /uL (1500-7000); Platelet Count 178 X10^3/uL (150-400); Red Blood Cell Count 4.24 X10^6/uL (4.0-5.2); Red Cell Distribution Width 16.1 % (11.6-14.8); White Blood Cell Count 3.3 X10^3/uL (4.5-11.0)
[2020-06-27 07:49] LABS: Alanine Aminotransferase 16 IU/L (<35); Albumin 3.8 g/dL (3.5-5.0); Albumin Globulin Ratio 1.5 (1.0-2.8); Alkaline Phosphatase 64 U/L (38-126); Aspartate Aminotransferase 29 IU/L (14-36); BUN Creatinine Ratio 22.7 (6-22); Blood Urea Nitrogen 17 mg/dL (7-17); Calcium 9.6 mg/dL (8.4-10.2); Carbon Dioxide 30 mmol/L (22-32); Chloride 106 mmol/L (98-107); Estimated Glomerular Filt Rate > 60.0 mL/min (>60); Globulin 2.5 g/dL (1.7-4.1); Glucose 97 mg/dL (80-110); HEMOLYSIS < 15 (0-50); Potassium 4.6 mmol/L (3.4-5.1); Sodium 139 mmol/L (137-145); Total Protein 6.3 g/dL (6.3-8.2)
[2020-06-27 07:51] LABS: Erythrocyte Sedimentation Rate 13 MM/HR (0-20)
[2020-06-27 07:53] LABS: C-Reactive Protein Quant < 0.5 mg/dL (<1.0)
== END ==
PROVIDERS: PCP Family Medicine; Referring Provider Family Medicine; Visit Provider Physician Assistant Medical
DX: M05.9 Rheumatoid arthritis with rheumatoid factor, unspecified (principal)
CPT/HCPCS: 36415; 80053; 85025; 85651; 86140

== ENCOUNTER → 2020-07-31 07:55 | Outpatient (CLI) | payer MEDICARE, SELFPAY ==
[2020-07-31] MEDS: COVID-19 VACC #1, MRNA(MOD) 100 MCG/0.5 ML VIAL IM (08:06)
== END ==
PROVIDERS: PCP Family Medicine; Visit Provider Internal Medicine
DX: Z23 Encounter for immunization (principal)
CPT/HCPCS: 0011A; 91301

== ENCOUNTER → 2020-08-28 07:37 | Outpatient (CLI) | payer MEDICARE, SELFPAY ==
[2020-08-28] MEDS: COVID-19 VACC #2, MRNA(MOD) 100 MCG/0.5 ML VIAL IM (07:42)
== END ==
PROVIDERS: PCP Family Medicine; Visit Provider Internal Medicine
DX: Z23 Encounter for immunization (principal)
CPT/HCPCS: 0012A; 91301

== ENCOUNTER → 2020-09-26 07:42 | Outpatient (CLI) | payer MEDICARE, SELFPAY ==
--- NOTE | 2020-09-26 07:43 | DI.MG.S_ITS ---
BILATERAL DIGITAL SCREENING MAMMOGRAM 3D/2D WITH CAD POST LUMPECTOMY: 09/26/2020 CLINICAL: Routine screening. Personal history of left breast cancer. Comparison is made to exams dated: 09/26/2019 mammogram, 08/11/2018 mammogram, 08/03/2017 mammogram, 07/26/2016 mammogram, 07/30/2015 mammogram, and 07/16/2014 mammogram - [facility]. There are scattered fibroglandular elements in both breasts. Current study was also evaluated with a Computer Aided Detection (CAD) system. There are benign calcifications in both breasts. There also are benign vascular calcifications in the left breast. Additionally, there are benign post operative findings in the right breast. No significant masses, calcifications, or other findings are seen in either breast. There has been no significant interval change. IMPRESSION: BENIGN There is no mammographic evidence of malignancy. A 1 year screening mammogram is recommended. This exam was interpreted at Station ID: [id number]. NOTE: For mammograms, a report in lay terms will be sent to the patient. Approximately 15% of breast malignancies will not be visualized mammographically. In the management of a palpable breast mass, a negative mammogram must not discourage biopsy of a clinically suspicious lesion. Electronically Signed By: Jose skinner/gosia:09/26/2020 08:28:37 copy to: Ryan Rodney letter sent: Normal Exam ACR BI-RADS Category 2: Benign Finding(s) 3342F
== END ==
PROVIDERS: PCP Family Medicine; Referring Provider Family Medicine; Visit Provider Family Medicine
DX: Z12.31 Encounter for screening mammogram for malignant neoplasm of breast (principal); Z85.3 Personal history of malignant neoplasm of breast
CPT/HCPCS: 77063; 77067

== ENCOUNTER → 2020-12-16 09:39 | Outpatient (CLI) | payer MEDICARE, SELFPAY ==
[2020-12-16 10:38] LABS: COVID19 -Nasal RAPID Negative (Negative)
== END ==
PROVIDERS: PCP Family Medicine; Visit Provider Surgery
DX: Z20.822 Contact with and (suspected) exposure to COVID-19 (principal)
CPT/HCPCS: 87635; C9803

== ENCOUNTER 2020-12-17 07:18 | Day surgery (SDC) | payer MEDICARE, SELFPAY ==
[2020-12-01 07:51] VITALS: BMI 28.3
[2020-12-17] VITALS (7 sets, daily range): BP systolic 118–144; BP diastolic 65–86; PULSE 72–106; RESP 14–21; TEMP 36.1–36.4; O2SAT 95–100; BMI 28.3
--- NOTE | 2020-12-17 | PATH_ITS ---
[facility] Accession Number: [id number] . 01 Material submitted: . PART A: hemorrhoids - LEFT LATERAL POSTERIOR HEMORRHOID PART B: hemorrhoids - RIGHT LATERAL POSTERIOR HEMORRHOID PART C: hemorrhoids - ANTERIOR HEMORRHOID . 02 Diagnosis: A. Left Lateral Posterior Hemorrhoid, Excision: Benign hemorrhoid tissue. No evidence of neoplasm. . B. Right Lateral Posterior Hemorrhoid, Excision: Benign hemorrhoid tissue. No evidence of neoplasm. . C. Anterior Hemorrhoid, Excision: Benign hemorrhoid tissue. No evidence of neoplasm. V 12/19/2020 1054 Local . 02 Electronically signed: . Faisal Amezcua MD, PhD, Pathologist NPI- [id number] . 01 Gross description: . A. Received in formalin, labeled left lateral posterior hemorrhoid consists of a 1.0 x 0.6 x 0.5 cm jimenez-pink fragment of mucosa. The margin is inked blue, the specimen is bisected and entirely submitted in cassette A1. B. Received in formalin, labeled right lateral posterior hemorrhoid consists of a 1.5 x 1.0 x 0.4 cm red-brown fragment of soft tissue. The presumed margin is inked blue, the specimen is bisected and entirely submitted in cassette B1. C. Received in formalin, labeled hemorrhoid anterior consists of a 0.7 x 0.6 x 0.2 cm jimenez fragment of mucosa. The margin is inked blue, the specimen is bisected and entirely submitted in cassette C1. (EA:[id number]) /MRV 12/18/2020 1033 Local . 02 Pathologist provided ICD-10: K64.3 . 02 CPT . 840598, 790962, [id number] Performed at: 01 [facility] [address] [place] [address], [place], [place] [id number] MD Gage Maynard MD Phone: [phone] Performed at: [address] [id number] [place], [place] [id number] MD Latrice Girard MD Phone: [phone]
[2020-12-17] MEDS: LACTATED RINGERS 1,000 ML 84 ML IV (07:35)
--- NOTE | 2020-12-17 08:40 | PM.PREOP ---
Pre-operative Note COVID-19 COVID-19 status: Negative Result date/Date tested (Pos, Neg/Pending): 12/16/20 Interval Note History & Physical reviewed/Exam performed by Physician: Yes Changes to H&P: No
--- NOTE | 2020-12-17 09:13 | SUR.OPER ---
Prone on padded OR bed, head in foam head support, gel chest rolls, gel pad under knees, pillow under lower legs, toes free of pressure, arms secured on padded arm boards at <90 degrees abduction. Safety belt at thigh. Tape over blanket over lower legs
[2020-12-17] MEDS: LIDOCAINE 1% W/EPI 20 ML INJ (09:21)
[2020-12-17] MEDS: DIBUCAINE 1% OINT 28 GM 1 APPLIC TOP (09:22)
--- NOTE | 2020-12-17 10:04 | PM.OP.1 ---
Operative Date/Time/Diagnoses Date of procedure: 12/17/20 Time of procedure: 10:05 Pre-op diagnosis: Prolapsing hemorrhoids. Grade iv Post-op diagnosis: same Procedure & Clinicians Procedure: Internal hemorrhoidectomy 3 column. Same procedure as scheduled: Yes Indications: Prolapsing hemorrhoids causing bleeding. Surgeon: Ryan Rodney Anesthesia Type: General Operative Notes Findings: 3 columns of hemorrhoids. Closure Type: not applicable Specimen(s): other (Hemorrhoids) Prosthetic devices, grafts, tissues, transplants, or devices: None Estimated Blood Loss (mL): 25 Blood products transfused: none Procedure in detail: Patient was placed active prone on the operating room table after undergoing general endotracheal anesthesia. She was prepped and draped in the usual fashion. There was visible prolapsing mucosa covered hemorrhoid. Digital exam was unremarkable for mass. Circumferential exam with a bivalve anoscope revealed 3 areas of prolapse. Each of these was sutured at the head of the column with a 2 0 Vicryl. Incision was made just inside the anal derm and the hemorrhoid lifted off the underlying tissue and excised. The defect created was closed with a running 2 0 Vicryl. Columns were located the anterior midline the left posterior lateral and right posterior lateral locations. Lesion on the right actually spanned almost to right lateral. There was no significant bleeding during the procedure. The rectum was irrigated and suctioned free of fluid. Gelfoam slab there to with dibucaine was inserted in the anal canal. Dressing was applied the patient was placed back on her stretcher extubated and taken the recovery room good condition. Complications: none Post-operative Condition: stable Disposition: PACU
[2020-12-17] MEDS: OXYCODONE/ACETAMINOPHEN 5/325 TABLET 1 TAB PO (10:07)
[2020-12-17] MEDS: BENZOCAINE/MENTHOL 1 LOZ PKT 1 EACH PO (10:10)
--- NOTE | 2020-12-17 11:01 | SUR.PHASEII ---
Pt up and dressed with only stand by assisted. Discharge in to Jason with dressing clean dry and intact. Ice pack given and new sitz bath.
== END 2020-12-17 10:58 | disposition home or self-care (01) ==
PROVIDERS: PCP Family Medicine; Referring Provider Specialist; Visit Provider Specialist
PROC: (CPT 46260; principal; 2020-12-17 08:45)
DX: K64.3 Fourth degree hemorrhoids (principal)
CPT/HCPCS: 46260; J0330; J1100; J2405; J2704; J3010

== ENCOUNTER → 2021-01-01 09:58 | Outpatient (CLI) | payer MEDICARE, SELFPAY ==
[2021-01-01 10:42] LABS: Add Manual Diff / Slide Review NO; Basophils Absolute Auto 0 /uL (0-100); Basophils Percent Auto 1.1 % (0-2); Eosinophils Absolute Auto 0 /uL (0-450); Eosinophils Percent Auto 1.5 % (2-4); Hematocrit 43.7 % (36-46); Hemoglobin 14.6 g/dL (12.0-16.0); Lymphocytes Absolute Auto 800 /uL (1100-4500); Lymphocytes Percent Auto 22.3 % (25-40); Mean Corpuscular HGB Conc 33.5 % (30-36); Mean Corpuscular Hemoglobin 32.9 PG (26-34); Mean Corpuscular Volume 98.1 fL (80-100); Monocytes Absolute Auto 300 /uL (0-900); Monocytes Percent Auto 8.3 % (3-14); Neutrophils Absolute Auto 2300 /uL (1500-7000); Neutrophils Percent Auto 66.8 % (50-75); Platelet Count 159 X10^3/uL (150-400); Red Blood Cell Count 4.45 X10^6/uL (4.0-5.2); White Blood Cell Count 3.4 X10^3/uL (4.5-11.0)
[2021-01-01 10:54] LABS: Alanine Aminotransferase 20 IU/L (<35); Albumin 4.3 g/dL (3.5-5.0); Albumin Globulin Ratio 1.5 (1.0-2.8); Alkaline Phosphatase 65 U/L (38-126); Aspartate Aminotransferase 33 IU/L (14-36); BUN Creatinine Ratio 18.6 (6-22); Bilirubin Total 0.7 mg/dL (0.2-1.3); Blood Urea Nitrogen 13 mg/dL (7-17); C-Reactive Protein Quant < 0.5 mg/dL (<1.0); Calcium 9.2 mg/dL (8.4-10.2); Carbon Dioxide 24 mmol/L (22-32); Chloride 110 mmol/L (98-107); Estimated Glomerular Filt Rate > 60.0 mL/min (>60); Globulin 2.9 g/dL (1.7-4.1); Glucose 90 mg/dL (80-110); HEMOLYSIS < 15 (0-50); Potassium 4.1 mmol/L (3.4-5.1); Sodium 141 mmol/L (137-145); Total Protein 7.2 g/dL (6.3-8.2)
[2021-01-01 11:02] LABS: Erythrocyte Sedimentation Rate 15 MM/HR (0-20)
== END ==
PROVIDERS: PCP Family Medicine; Referring Provider Physician Assistant Medical; Visit Provider Physician Assistant Medical
DX: M05.9 Rheumatoid arthritis with rheumatoid factor, unspecified (principal)
CPT/HCPCS: 36415; 80053; 85025; 85651; 86140

== ENCOUNTER → 2021-04-02 07:40 | Outpatient (CLI) | payer MEDICARE, SELFPAY ==
[2021-04-02 08:20] LABS: Add Manual Diff / Slide Review NO; Basophils Absolute Auto 0 /uL (0-100); Eosinophils Absolute Auto 100 /uL (0-450); Eosinophils Percent Auto 1.9 % (2-4); Hematocrit 41.9 % (36-46); Hemoglobin 14.2 g/dL (12.0-16.0); Lymphocytes Absolute Auto 1000 /uL (1100-4500); Lymphocytes Percent Auto 31.7 % (25-40); Mean Corpuscular HGB Conc 33.9 % (30-36); Mean Corpuscular Hemoglobin 32.9 PG (26-34); Monocytes Absolute Auto 300 /uL (0-900); Monocytes Percent Auto 9.6 % (3-14); Neutrophils Absolute Auto 1800 /uL (1500-7000); Neutrophils Percent Auto 55.8 % (50-75); Platelet Count 172 X10^3/uL (150-400); Red Blood Cell Count 4.32 X10^6/uL (4.0-5.2); Red Cell Distribution Width 15.1 % (11.6-14.8); White Blood Cell Count 3.2 X10^3/uL (4.5-11.0)
[2021-04-02 08:26] LABS: Cholesterol 170 mg/dL (140-199); HDL Cholesterol 86 mg/dL (40-60); LDL Cholesterol Calculated 68 mg/dL (<100); Triglycerides 78 mg/dL (35-150)
[2021-04-02 08:33] LABS: Alanine Aminotransferase 16 IU/L (<35); Albumin 3.8 g/dL (3.5-5.0); Albumin Globulin Ratio 1.5 (1.0-2.8); Alkaline Phosphatase 61 U/L (38-126); Aspartate Aminotransferase 26 IU/L (14-36); Bilirubin Total 0.9 mg/dL (0.2-1.3); Blood Urea Nitrogen 20 mg/dL (7-17); C-Reactive Protein Quant < 0.5 mg/dL (<1.0); Calcium 9.2 mg/dL (8.4-10.2); Carbon Dioxide 29 mmol/L (22-32); Chloride 108 mmol/L (98-107); Estimated Glomerular Filt Rate 59.3 mL/min (>60); Globulin 2.6 g/dL (1.7-4.1); Glucose 86 mg/dL (80-110); HEMOLYSIS < 15 (0-50); Potassium 4.4 mmol/L (3.4-5.1); Sodium 140 mmol/L (137-145); Total Protein 6.4 g/dL (6.3-8.2)
[2021-04-02 08:46] LABS: Erythrocyte Sedimentation Rate 9 MM/HR (0-20)
== END ==
PROVIDERS: PCP Family Medicine; Referring Provider Physician Assistant Medical; Visit Provider Physician Assistant Medical
DX: E78.2 Mixed hyperlipidemia (principal)
CPT/HCPCS: 36415; 80053; 80061; 85025; 85651; 86140

== ENCOUNTER → 2021-07-07 07:38 | Outpatient (CLI) | payer MEDICARE, SELFPAY ==
[2021-07-07 08:34] LABS: Add Manual Diff / Slide Review NO; Basophils Absolute Auto 0 /uL (0-100); Basophils Percent Auto 1.1 % (0-2); Eosinophils Absolute Auto 100 /uL (0-450); Eosinophils Percent Auto 2.4 % (2-4); Hematocrit 42.6 % (36-46); Hemoglobin 14.2 g/dL (12.0-16.0); Lymphocytes Absolute Auto 900 /uL (1100-4500); Lymphocytes Percent Auto 30.9 % (25-40); Mean Corpuscular HGB Conc 33.2 % (30-36); Mean Corpuscular Hemoglobin 32.6 PG (26-34); Mean Corpuscular Volume 98.3 fL (80-100); Monocytes Absolute Auto 200 /uL (0-900); Monocytes Percent Auto 8.5 % (3-14); Neutrophils Absolute Auto 1600 /uL (1500-7000); Neutrophils Percent Auto 57.1 % (50-75); Platelet Count 188 X10^3/uL (150-400); Red Blood Cell Count 4.34 X10^6/uL (4.0-5.2); Red Cell Distribution Width 15.6 % (11.6-14.8); White Blood Cell Count 2.8 X10^3/uL (4.5-11.0)
[2021-07-07 08:58] LABS: Alanine Aminotransferase 15 IU/L (<35); Albumin 3.8 g/dL (3.5-5.0); Albumin Globulin Ratio 1.5 (1.0-2.8); Alkaline Phosphatase 51 U/L (38-126); Aspartate Aminotransferase 24 IU/L (14-36); BUN Creatinine Ratio 20.5 (6-22); Bilirubin Total 0.8 mg/dL (0.2-1.3); Blood Urea Nitrogen 17 mg/dL (7-17); C-Reactive Protein Quant < 0.5 mg/dL (<1.0); Calcium 9.2 mg/dL (8.4-10.2); Carbon Dioxide 29 mmol/L (22-32); Chloride 108 mmol/L (98-107); Estimated Glomerular Filt Rate > 60.0 mL/min (>60); Globulin 2.6 g/dL (1.7-4.1); Glucose 76 mg/dL (80-110); HEMOLYSIS < 15 (0-50); Potassium 4.3 mmol/L (3.4-5.1); Sodium 139 mmol/L (137-145); Total Protein 6.4 g/dL (6.3-8.2)
[2021-07-07 09:15] LABS: Erythrocyte Sedimentation Rate 9 MM/HR (0-20)
== END ==
PROVIDERS: PCP Family Medicine; Referring Provider Physician Assistant Medical; Visit Provider Physician Assistant Medical
DX: M05.9 Rheumatoid arthritis with rheumatoid factor, unspecified (principal)
CPT/HCPCS: 36415; 80053; 85025; 85651; 86140

== ENCOUNTER → 2021-09-30 06:42 | Outpatient (CLI) | payer MEDICARE, SELFPAY | PROVIDERS: PCP Family Medicine; Referring Provider Surgery; Visit Provider Surgery | DX: Z12.31 Encounter for screening mammogram for malignant neoplasm of breast (principal) ==

== ENCOUNTER → 2021-09-30 06:46 | Outpatient (CLI) | payer MEDICARE, SELFPAY ==
[2021-09-30 08:26] LABS: Add Manual Diff / Slide Review NO; Basophils Absolute Auto 0 /uL (0-100); Basophils Percent Auto 1.2 % (0-2); Eosinophils Absolute Auto 100 /uL (0-450); Eosinophils Percent Auto 1.9 % (2-4); Hematocrit 42.2 % (36-46); Hemoglobin 14.5 g/dL (12.0-16.0); Lymphocytes Absolute Auto 900 /uL (1100-4500); Lymphocytes Percent Auto 31.1 % (25-40); Mean Corpuscular HGB Conc 34.2 % (30-36); Mean Corpuscular Hemoglobin 33.4 PG (26-34); Mean Corpuscular Volume 97.4 fL (80-100); Monocytes Absolute Auto 300 /uL (0-900); Monocytes Percent Auto 10.3 % (3-14); Neutrophils Absolute Auto 1600 /uL (1500-7000); Neutrophils Percent Auto 55.5 % (50-75); Platelet Count 163 X10^3/uL (150-400); Red Blood Cell Count 4.34 X10^6/uL (4.0-5.2); Red Cell Distribution Width 15.3 % (11.6-14.8); White Blood Cell Count 2.9 X10^3/uL (4.5-11.0)
[2021-09-30 08:36] LABS: Alanine Aminotransferase 17 IU/L (<35); Albumin 4.1 g/dL (3.5-5.0); Albumin Globulin Ratio 1.5 (1.0-2.8); Alkaline Phosphatase 65 U/L (38-126); Aspartate Aminotransferase 31 IU/L (14-36); BUN Creatinine Ratio 21.3 (6-22); Blood Urea Nitrogen 19 mg/dL (7-17); Calcium 8.8 mg/dL (8.4-10.2); Carbon Dioxide 26 mmol/L (22-32); Chloride 107 mmol/L (98-107); Estimated Glomerular Filt Rate > 60 mL/min (>60); Globulin 2.8 g/dL (1.7-4.1); Glucose 87 mg/dL (80-110); HEMOLYSIS < 15 (0-50); Potassium 4.3 mmol/L (3.4-5.1); Sodium 140 mmol/L (137-145); Total Protein 6.9 g/dL (6.3-8.2)
== END ==
PROVIDERS: PCP Family Medicine; Referring Provider Physician Assistant Medical; Visit Provider Physician Assistant Medical
DX: M05.9 Rheumatoid arthritis with rheumatoid factor, unspecified
CPT/HCPCS: 36415; 80053; 85025

== ENCOUNTER → 2021-10-15 07:36 | Outpatient (CLI) | payer MEDICARE, SELFPAY ==
--- NOTE | 2021-10-15 07:37 | DI.US.S_ITS ---
LIMITED ULTRASOUND OF RIGHT BREAST AND AXILLA: 10/15/2021 CLINICAL: Palpable right breast lumps x 2 at lumpectomy site. Comparison is made to exams dated: 10/15/2021 mammogram, 09/26/2020 mammogram, 09/26/2019 mammogram, 08/11/2018 mammogram, and 08/03/2017 mammogram - [facility]. Color flow and real-time ultrasound of the right breast 11-12 o'clock, and axilla regions were performed. Kuo scale images of the real-time examination were reviewed. There is a 1.5 cm x 1.3 cm x 1.2 cm oval mass in the right breast at 12 o'clock middle depth 6 cm from the nipple. This oval mass is hypoechoic with posterior acoustic shadowing. This correlates as palpated and with mammography findings. Color flow imaging demonstrates that there is an adjacent vascularity. There also is a 1.8 cm x 0.9 cm x 0.8 cm wider than tall oval mass in the right breast at 11 o'clock anterior depth 3 cm from the nipple. This oval mass is isoechoic. This correlates as palpated and with mammography findings. Color flow imaging demonstrates that there is vascularity present. The masses are located 1.2 cm from each other 12:00. These masses are at the lumpectomy scar. No significant abnormalities were seen sonographically in the right axilla. IMPRESSION: SUSPICIOUS OF MALIGNANCY The 1.5 cm x 1.3 cm x 1.2 cm oval mass in the right breast at 12 o'clock middle depth is at a moderate suspicion for malignancy. -An ultrasound guided biopsy is recommended. The 1.8 cm x 0.9 cm x 0.8 cm wider than tall oval mass in the right breast at 11 o'clock anterior depth is at a low suspicion for malignancy. -An ultrasound guided biopsy is recommended. Exam findings were discussed with the patient. Patient reports that these masses are new for approximately 5 weeks. This exam was interpreted at Station ID: [id number]. Electronically Signed By: Jose Esteves M.D. slc/:10/15/2021 09:20:01 copy to: Ryan Rodney letter sent: Biopsy Required Ultrasound BI-RADS: 4b Moderate suspicion of malignancy
--- NOTE | 2021-10-15 07:37 | DI.MG.S_ITS ---
BILATERAL DIGITAL DIAGNOSTIC MAMMOGRAM 3D/2D: 10/15/2021 CLINICAL: Palpable right breast lump. Comparison is made to exams dated: 09/26/2020 mammogram, 09/26/2019 mammogram, 08/11/2018 mammogram, 08/03/2017 mammogram, and 07/26/2016 mammogram - [facility]. There are scattered fibroglandular elements in both breasts. There is an subtle oval focal asymmetry with adjacent dystrophic calcifications in the right breast at 11 o'clock anterior depth. This is slightly more prominent. No other significant masses, calcifications, or other findings are seen in either breast. IMPRESSION: INCOMPLETE: NEEDS ADDITIONAL IMAGING EVALUATION Focal asymmetry in the right breast is indeterminate. A targeted ultrasound is recommended and will immediately follow. This exam was interpreted at Station ID: [id number]. NOTE: For mammograms, a report in lay terms will be sent to the patient. Approximately 15% of breast malignancies will not be visualized mammographically. In the management of a palpable breast mass, a negative mammogram must not discourage biopsy of a clinically suspicious lesion. Electronically Signed By: Jose Esteves M.D. slc/:10/15/2021 09:13:24 copy to: Ryan Rodney ACR BI-RADS Category 0: Incomplete [id number]
== END ==
PROVIDERS: PCP Family Medicine; Referring Provider Family Medicine; Visit Provider Family Medicine
DX: R92.8 Other abnormal and inconclusive findings on diagnostic imaging of breast (principal); N63.15 Unspecified lump in the right breast, overlapping quadrants; N63.11 Unspecified lump in the right breast, upper outer quadrant; Z85.3 Personal history of malignant neoplasm of breast
CPT/HCPCS: 76642; 77066; G0279

== ENCOUNTER → 2021-11-03 13:47 | Outpatient (CLI) | payer MEDICARE, SELFPAY ==
--- NOTE | 2021-11-03 | DI.US.S_ITS ---
MULTIPLE ULTRASOUND GUIDED BIOPSIES RIGHT BREAST USING VACUUM DEVICE WITH MARKING DEVICES INSERTED AND POST DIGITAL MAMMOGRAPHIC IMAGIN11/03/2021 CLINICAL: Right breast masses at 12:00 and 11:00. PATIENT CONSENT: Risks (minor bleeding, infection, vasovagal reaction and repeat procedure), benefits and alternatives were explained to the patient and written informed consent was obtained. Correlation is made to exams dated: 10/15/2021 ultrasound, 10/15/2021 mammogram, 09/26/2020 mammogram, 09/26/2019 mammogram, 08/11/2018 mammogram, and 08/03/2017 mammogram - [facility]. An ultrasound guided biopsy using real-time ultrasound was performed for the oval mass located in the right breast central to the nipple anterior depth. The skin was prepped in the usual manner. Local anesthetic was administered to the access site. A skin nando was made in the breast. The abnormality was approached from the lateral aspect. A 13 gauge biopsy needle was placed adjacent to the abnormality under ultrasound guidance. Once the needle was documented to be in the correct location, three specimens were obtained using the Mammotome biopsy system. A Celero marker clip was inserted into the biopsy cavity. A skin closure strip was applied to the access site. Post procedure digital mammographic imaging demonstrates the location device at the targeted area. The specimens were sent to the laboratory for pathological analysis. A second ultrasound guided biopsy using real-time ultrasound was performed for the oval mass located in the right breast at 11 o'clock anterior depth. The skin was prepped in the usual manner. Local anesthetic was administered to the access site. A skin nando was made in the breast. The abnormality was approached from the caudocranial aspect. A 13 gauge biopsy needle was placed adjacent to the abnormality under ultrasound guidance. Once the needle was documented to be in the correct location, four specimens were obtained using the Mammotome biopsy system. A Vision marker clip was inserted into the biopsy cavity. A skin closure strip was applied to the access site. Post procedure digital mammographic imaging demonstrates the location device at the targeted area. The specimens were sent to the laboratory for pathological analysis. IMPRESSION: ULTRASOUND GUIDED BIOPSY BENIGN Ultrasound guided biopsy of the mass in the right breast central to the nipple anterior depth was successful. Pathology indicates benign stromal fibrosis. Pathology results are concordant with imaging findings. Ultrasound guided biopsy of the mass in the right breast at 11 o'clock anterior depth was successful. Pathology indicates benign stromal fibrosis. Pathology results are concordant with imaging findings. Return to annual mammogram screening schedule is recommended. This exam was interpreted at Station ID: [id number]. Domenica Israel M.D. [facility],aty/:11/06/2021 20:25:27 copy to: Ryan Rodney
--- NOTE | 2021-11-03 | PATH_ITS ---
[facility] Accession Number: [id number] No. of containers..02 Tissue . 01 Material submitted: . PART A: breast - RIGHT BREAST MASS 12:00, 6 CM FROM NIPPLE PART B: breast - RIGHT BREAST MASS 11:00 3 CM FROM NIPPLE . 01 Clinical history: . UNSPECIFIED LUMP IN THE RIGHT BREAST . 01 Diagnosis: A. Right Breast Mass, 12 o'clock, 6 cm from Nipple, Image-Guided Core Biopsy: Atrophic breast tissue with stromal fibrosis. Rare benign microcalcification identified within ducts. Negative for significant atypia and malignancy. . B. Right Breast Mass, 11 o'clock, 3 cm from Nipple, Image-Guided Core Biopsy: Atrophic breast tissue with hyalinizing stromal fibrosis and associated large dystrophic calcium granules. Rare benign microcalcification in lobules identified. Background fat necrosis. Negative for significant atypia and malignancy. [facility] 11/04/2021 1627 Local . 01 Electronically signed: . Samina Garcia MD, Pathologist NPI- [id number] . 01 Gross description: . Received two formalin-filled containers, both labeled with the patient's name: . A. In a container labeled right breast 12 o'clock, the specimen is received with a plastic filter in container, sample loose in container and consists of multiple light yellow-jimenez pieces of soft tissue which range in size from less than 0.1 cm to 0.4 x 0.3 x 0.3 cm. The specimen is entirely submitted in cassette A. B. In a container labeled right breast 11 o'clock, the specimen is received with a plastic filter in container, sample loose in container and consists of multiple fragments of yellow-jimenez soft tissue which range in size from less than 0.1 cm to 0.7 x 0.2 x 0.2 cm. The specimen is entirely submitted in cassette B. . Possible collection date and time per requisition: 11/03/21 at 1535. Total fixation time: Approximately 13 hours. ([id number]) /FRR 11/04/2021 0233 Local . 01 Pathologist provided ICD-10: N63.15 . 01 CPT . 598995, 083080 Specimen Comment: A courtesy copy of this report has been sent to [phone] Performed at: [facility] [address] [place] [address] [id number] MD Gage Maynard MD Phone: [phone]
--- NOTE | 2021-11-03 | DI.MG.S_ITS ---
UNILATERAL RIGHT DIGITAL DIAGNOSTIC MAMMOGRAM 3D/2D POST LUMPECTOMY POST-NEEDLE BIOPSY: 11/03/2021 CLINICAL: Post clip. Comparison is made to exams dated: 10/15/2021 mammogram, 09/26/2020 mammogram, and 09/26/2019 mammogram - [facility]. There are scattered fibroglandular elements in right breast. There is a Celero marker clip in the right breast at 12 o'clock anterior depth. There also is a Vision marker clip in the appropriate position in the right breast at 11 o'clock anterior depth. The marker clip placement is at the biopsy sites. IMPRESSION: INCOMPLETE: NEEDS ADDITIONAL IMAGING EVALUATION There was successful Celero marker clip placement in the right breast at 12 o'clock anterior depth. There was successful Vision marker clip placement in the right breast at 11 o'clock anterior depth. This exam was interpreted at Station ID: [id number]. NOTE: For mammograms, a report in lay terms will be sent to the patient. Approximately 15% of breast malignancies will not be visualized mammographically. In the management of a palpable breast mass, a negative mammogram must not discourage biopsy of a clinically suspicious lesion. Electronically Signed By: Domenica Prieto M.D. [facility] [place]/:11/03/2021 15:50:39 copy to: Ryan HUDSON BI-RADS Category 0: Incomplete [id number]
== END ==
PROVIDERS: PCP Family Medicine; Referring Provider Surgery; Visit Provider Surgery
DX: N63.15 Unspecified lump in the right breast, overlapping quadrants (principal); Z85.3 Personal history of malignant neoplasm of breast
CPT/HCPCS: 19083; 19084; 77065

== ENCOUNTER → 2022-01-05 07:07 | Outpatient (CLI) | payer MEDICARE, SELFPAY ==
[2022-01-05 07:42] LABS: Add Manual Diff / Slide Review NO; Basophils Absolute Auto 0 /uL (0-100); Eosinophils Absolute Auto 100 /uL (0-450); Eosinophils Percent Auto 1.6 % (2-4); Hematocrit 42.8 % (36-46); Hemoglobin 14.2 g/dL (12.0-16.0); Lymphocytes Absolute Auto 900 /uL (1100-4500); Lymphocytes Percent Auto 20.9 % (25-40); Mean Corpuscular HGB Conc 33.2 % (30-36); Mean Corpuscular Hemoglobin 32.8 PG (26-34); Mean Corpuscular Volume 98.6 fL (80-100); Monocytes Absolute Auto 400 /uL (0-900); Monocytes Percent Auto 9.2 % (3-14); Neutrophils Absolute Auto 2900 /uL (1500-7000); Neutrophils Percent Auto 67.3 % (50-75); Platelet Count 173 X10^3/uL (150-400); Red Blood Cell Count 4.34 X10^6/uL (4.0-5.2); Red Cell Distribution Width 14.9 % (11.6-14.8); White Blood Cell Count 4.3 X10^3/uL (4.5-11.0)
[2022-01-05 07:50] LABS: Alanine Aminotransferase 17 IU/L (<35); Albumin 3.8 g/dL (3.5-5.0); Albumin Globulin Ratio 1.4 (1.0-2.8); Alkaline Phosphatase 57 U/L (38-126); Aspartate Aminotransferase 25 IU/L (14-36); BUN Creatinine Ratio 17.6 (6-22); Bilirubin Total 0.9 mg/dL (0.2-1.3); Blood Urea Nitrogen 13 mg/dL (7-17); Calcium 8.8 mg/dL (8.4-10.2); Carbon Dioxide 27 mmol/L (22-32); Chloride 108 mmol/L (98-107); Estimated Glomerular Filt Rate > 60 mL/min (>60); Globulin 2.8 g/dL (1.7-4.1); Glucose 88 mg/dL (80-110); HEMOLYSIS < 15 (0-50); Potassium 4.1 mmol/L (3.4-5.1); Sodium 140 mmol/L (137-145); Total Protein 6.6 g/dL (6.3-8.2)
== END ==
PROVIDERS: PCP Family Medicine; Referring Provider Physician Assistant Medical; Visit Provider Physician Assistant Medical
DX: M05.9 Rheumatoid arthritis with rheumatoid factor, unspecified (principal)
CPT/HCPCS: 36415; 80053; 85025

== ENCOUNTER → 2022-02-05 16:52 | Outpatient (CLI) | payer MEDICARE, SELFPAY | PROVIDERS: PCP Family Medicine; Referring Provider Internal Medicine; Visit Provider Internal Medicine | DX: Z23 Encounter for immunization (principal) | CPT/HCPCS: 90471; 90662 ==

== ENCOUNTER → 2022-04-01 10:22 | Outpatient (CLI) | payer MEDICARE, SELFPAY ==
[2022-04-01 12:57] LABS: Add Manual Diff / Slide Review NO; Basophils Absolute Auto 0 /uL (0-100); Basophils Percent Auto 0.9 % (0-2); Eosinophils Absolute Auto 0 /uL (0-450); Eosinophils Percent Auto 1.4 % (2-4); Hematocrit 43.8 % (36-46); Hemoglobin 14.5 g/dL (12.0-16.0); Lymphocytes Absolute Auto 900 /uL (1100-4500); Lymphocytes Percent Auto 25.6 % (25-40); Mean Corpuscular HGB Conc 33.1 % (30-36); Mean Corpuscular Hemoglobin 32.7 PG (26-34); Mean Corpuscular Volume 98.6 fL (80-100); Monocytes Absolute Auto 300 /uL (0-900); Monocytes Percent Auto 7.9 % (3-14); Neutrophils Absolute Auto 2200 /uL (1500-7000); Neutrophils Percent Auto 64.2 % (50-75); Platelet Count 180 X10^3/uL (150-400); Red Blood Cell Count 4.44 X10^6/uL (4.0-5.2); Red Cell Distribution Width 14.7 % (11.6-14.8); White Blood Cell Count 3.4 X10^3/uL (4.5-11.0)
[2022-04-01 14:00] LABS: Alanine Aminotransferase 18 IU/L (<35); Albumin 4.1 g/dL (3.5-5.0); Albumin Globulin Ratio 1.4 (1.0-2.8); Alkaline Phosphatase 68 U/L (38-126); Aspartate Aminotransferase 28 IU/L (14-36); BUN Creatinine Ratio 24.2 (6-22); Bilirubin Total 0.8 mg/dL (0.2-1.3); Blood Urea Nitrogen 16 mg/dL (7-17); Calcium 8.9 mg/dL (8.4-10.2); Carbon Dioxide 29 mmol/L (22-32); Chloride 106 mmol/L (98-107); Estimated Glomerular Filt Rate > 60 mL/min (>60); Glucose 73 mg/dL (80-110); HEMOLYSIS < 15 (0-50); Potassium 4.3 mmol/L (3.4-5.1); Sodium 140 mmol/L (137-145); Total Protein 7.1 g/dL (6.3-8.2)
== END ==
PROVIDERS: PCP Family Medicine; Referring Provider Physician Assistant Medical; Visit Provider Physician Assistant Medical
DX: M05.9 Rheumatoid arthritis with rheumatoid factor, unspecified (principal)
CPT/HCPCS: 36415; 80053; 85025

== ENCOUNTER → 2022-06-30 07:14 | Outpatient (CLI) | payer MEDICARE, SELFPAY ==
[2022-06-30 09:16] LABS: Add Manual Diff / Slide Review NO; Basophils Absolute Auto 0 /uL (0-100); Basophils Percent Auto 1.1 % (0-2); Eosinophils Absolute Auto 100 /uL (0-450); Eosinophils Percent Auto 2.9 % (2-4); Hematocrit 44.3 % (36-46); Hemoglobin 14.9 g/dL (12.0-16.0); Lymphocytes Absolute Auto 800 /uL (1100-4500); Lymphocytes Percent Auto 28.8 % (25-40); Mean Corpuscular HGB Conc 33.7 % (30-36); Mean Corpuscular Hemoglobin 32.6 PG (26-34); Mean Corpuscular Volume 96.9 fL (80-100); Monocytes Absolute Auto 300 /uL (0-900); Monocytes Percent Auto 10.8 % (3-14); Neutrophils Absolute Auto 1500 /uL (1500-7000); Neutrophils Percent Auto 56.4 % (50-75); Platelet Count 175 X10^3/uL (150-400); Red Blood Cell Count 4.57 X10^6/uL (4.0-5.2); Red Cell Distribution Width 14.8 % (11.6-14.8); White Blood Cell Count 2.6 X10^3/uL (4.5-11.0)
[2022-06-30 09:49] LABS: Alanine Aminotransferase 17 IU/L (<35); Albumin Globulin Ratio 1.5 (1.0-2.8); Alkaline Phosphatase 70 U/L (38-126); Aspartate Aminotransferase 25 IU/L (14-36); BUN Creatinine Ratio 21.8 (6-22); Bilirubin Total 0.8 mg/dL (0.2-1.3); Blood Urea Nitrogen 17 mg/dL (7-17); Calcium 9.1 mg/dL (8.4-10.2); Carbon Dioxide 29 mmol/L (22-32); Chloride 105 mmol/L (98-107); Estimated Glomerular Filt Rate > 60 mL/min (>60); Globulin 2.7 g/dL (1.7-4.1); Glucose 84 mg/dL (80-110); HEMOLYSIS < 15 (0-50); Potassium 4.5 mmol/L (3.4-5.1); Sodium 140 mmol/L (137-145); Total Protein 6.7 g/dL (6.3-8.2)
[2022-06-30 09:51] LABS: Cholesterol 217 mg/dL (140-199); HDL Cholesterol 108 mg/dL (40-60); LDL Cholesterol Calculated 96 mg/dL (<100); Triglycerides 67 mg/dL (35-150)
== END ==
PROVIDERS: PCP Family Medicine; Referring Provider Physician Assistant Medical; Visit Provider Physician Assistant Medical
DX: M05.9 Rheumatoid arthritis with rheumatoid factor, unspecified (principal); E78.2 Mixed hyperlipidemia; M06.9 Rheumatoid arthritis, unspecified; Z85.3 Personal history of malignant neoplasm of breast
CPT/HCPCS: 36415; 80053; 80061; 85025

== ENCOUNTER → 2022-07-13 11:10 | Outpatient (CLI) | payer MEDICARE, SELFPAY ==
[2022-07-13 11:44] LABS: Add Manual Diff / Slide Review NO; Basophils Absolute Auto 0 /uL (0-100); Basophils Percent Auto 0.9 % (0-2); Eosinophils Absolute Auto 100 /uL (0-450); Eosinophils Percent Auto 1.4 % (2-4); Hematocrit 43.2 % (36-46); Hemoglobin 14.7 g/dL (12.0-16.0); Lymphocytes Absolute Auto 1000 /uL (1100-4500); Lymphocytes Percent Auto 23.2 % (25-40); Mean Corpuscular Hemoglobin 32.8 PG (26-34); Mean Corpuscular Volume 96.5 fL (80-100); Monocytes Absolute Auto 300 /uL (0-900); Monocytes Percent Auto 7.9 % (3-14); Neutrophils Absolute Auto 2800 /uL (1500-7000); Neutrophils Percent Auto 66.6 % (50-75); Platelet Count 186 X10^3/uL (150-400); Red Blood Cell Count 4.47 X10^6/uL (4.0-5.2); White Blood Cell Count 4.2 X10^3/uL (4.5-11.0)
== END ==
PROVIDERS: PCP Family Medicine; Referring Provider Family Medicine; Visit Provider Family Medicine
DX: E78.2 Mixed hyperlipidemia (principal); M06.9 Rheumatoid arthritis, unspecified
CPT/HCPCS: 36415; 85025

== ENCOUNTER → 2022-09-23 08:44 | Outpatient (CLI) | payer MEDICARE, SELFPAY ==
[2022-09-23 09:29] LABS: Alanine Aminotransferase 18 IU/L (<35); Albumin 4.1 g/dL (3.5-5.0); Albumin Globulin Ratio 1.6 (1.0-2.8); Alkaline Phosphatase 62 U/L (38-126); Aspartate Aminotransferase 23 IU/L (14-36); BUN Creatinine Ratio 21.3 (6-22); Bilirubin Total 0.8 mg/dL (0.2-1.3); Blood Urea Nitrogen 16 mg/dL (7-17); Calcium 9.3 mg/dL (8.4-10.2); Carbon Dioxide 29 mmol/L (22-32); Chloride 104 mmol/L (98-107); Estimated Glomerular Filt Rate > 60 mL/min (>60); Globulin 2.6 g/dL (1.7-4.1); Glucose 96 mg/dL (80-110); HEMOLYSIS < 15 (0-50); Potassium 4.3 mmol/L (3.4-5.1); Sodium 140 mmol/L (137-145); Total Protein 6.7 g/dL (6.3-8.2)
[2022-09-23 09:56] LABS: Add Manual Diff / Slide Review NO; Basophils Absolute Auto 0 /uL (0-100); Basophils Percent Auto 0.7 % (0-2); Eosinophils Absolute Auto 100 /uL (0-450); Eosinophils Percent Auto 1.4 % (2-4); Hematocrit 42.7 % (36-46); Hemoglobin 14.4 g/dL (12.0-16.0); Lymphocytes Absolute Auto 800 /uL (1100-4500); Lymphocytes Percent Auto 22.6 % (25-40); Mean Corpuscular HGB Conc 33.8 % (30-36); Mean Corpuscular Hemoglobin 33.5 PG (26-34); Mean Corpuscular Volume 99.1 fL (80-100); Monocytes Absolute Auto 300 /uL (0-900); Neutrophils Absolute Auto 2400 /uL (1500-7000); Neutrophils Percent Auto 66.3 % (50-75); Platelet Count 195 X10^3/uL (150-400); Red Blood Cell Count 4.31 X10^6/uL (4.0-5.2); Red Cell Distribution Width 15.5 % (11.6-14.8); White Blood Cell Count 3.6 X10^3/uL (4.5-11.0)
== END ==
PROVIDERS: PCP Family Medicine; Referring Provider Physician Assistant Medical; Visit Provider Physician Assistant Medical
DX: M05.9 Rheumatoid arthritis with rheumatoid factor, unspecified (principal)
CPT/HCPCS: 36415; 80053; 85025

== ENCOUNTER → 2022-11-04 07:47 | Outpatient (CLI) | payer MEDICARE, SELFPAY ==
--- NOTE | 2022-11-04 07:48 | DI.MG.S_ITS ---
BILATERAL DIGITAL DIAGNOSTIC MAMMOGRAM 3D/2D POST LUMPECTOMY: 11/04/2022 CLINICAL: Post Bx Mammo. Comparison is made to exams dated: 11/03/2021 ultrasound biopsy, 11/03/2021 mammogram, 10/15/2021 mammogram, and 09/26/2020 mammogram - [facility]. There are scattered areas of fibroglandular density in both breasts (category b / 25%-50% glandular tissue). There is a stable focal asymmetry in the right breast at 11 o'clock anterior depth. There are biopsy clips and post-surgical changes. No other significant masses, calcifications, or other findings are seen in either breast. IMPRESSION: INCOMPLETE: NEEDS ADDITIONAL IMAGING EVALUATION The stable focal asymmetry in the right breast at 11 o'clock anterior depth is indeterminate. An ultrasound is recommended. This exam was interpreted at Station ID: [id number]. NOTE: For mammograms, a report in lay terms will be sent to the patient. Approximately 15% of breast malignancies will not be visualized mammographically. In the management of a palpable breast mass, a negative mammogram must not discourage biopsy of a clinically suspicious lesion. Electronically Signed By: Edy Song M.D. lc/:11/04/2022 09:15:43 copy to: Ryan HUDSON BI-RADS Category 0: Incomplete [id number]
--- NOTE | 2022-11-04 07:48 | DI.US.S_ITS ---
LIMITED ULTRASOUND OF RIGHT BREAST: 11/04/2022 CLINICAL: 6 month follow-up biopsy. Comparison is made to exams dated: 11/04/2022 mammogram, 11/03/2021 ultrasound biopsy, 11/03/2021 mammogram, 10/15/2021 ultrasound, 10/15/2021 mammogram, and 09/26/2020 mammogram - [facility]. Color flow ultrasound of the right breast 11-12 o'clock region was performed. Kuo scale images of the real-time examination were reviewed. There is a benign 1.8 cm x 0.9 cm x 0.8 cm wider than tall oval mass in the right breast at 11 o'clock anterior depth 3 cm from the nipple. This oval mass is isoechoic. This correlates as palpated, with mammography findings, and the previous biopsy. Color flow imaging demonstrates that there is vascularity present. There also is a benign 1.5 cm x 1.3 cm x 1.4 cm oval mass in the right breast at 12 o'clock middle depth 6 cm from the nipple. This oval mass is hypoechoic with posterior acoustic shadowing. This correlates as palpated, with mammography findings, and the previous biopsy. Color flow imaging demonstrates that there is an adjacent vascularity. IMPRESSION: BENIGN There is no sonographic evidence of malignancy. The 1.8 cm x 0.9 cm x 0.8 cm wider than tall oval mass in the right breast at 11 o'clock anterior depth is benign. The 1.5 cm x 1.3 cm x 1.4 cm oval mass in the right breast at 12 o'clock middle depth is benign. These are previously biopsied with concordant benign result. Return to annual mammogram screening schedule is recommended. This exam was interpreted at Station ID: [id number]. Electronically Signed By: Edy Song M.D. lc/:11/04/2022 09:18:49 copy to: Ryan Rodney letter sent: Normal Exam Ultrasound BI-RADS: 2 Benign
== END ==
PROVIDERS: PCP Family Medicine; Referring Provider Surgery; Visit Provider Surgery
DX: N63.11 Unspecified lump in the right breast, upper outer quadrant (principal); N63.15 Unspecified lump in the right breast, overlapping quadrants; R92.8 Other abnormal and inconclusive findings on diagnostic imaging of breast; Z85.3 Personal history of malignant neoplasm of breast
CPT/HCPCS: 76642; 77066; G0279

== ENCOUNTER → 2022-11-17 08:16 | Outpatient (CLI) | payer MEDICARE, SELFPAY ==
[2022-11-17 09:55] LABS: Add Manual Diff / Slide Review NO; Basophils Absolute Auto 0 /uL (0-100); Basophils Percent Auto 1.1 % (0-2); Eosinophils Absolute Auto 100 /uL (0-450); Eosinophils Percent Auto 2.2 % (2-4); Hematocrit 42.4 % (36-46); Hemoglobin 14.3 g/dL (12.0-16.0); Lymphocytes Absolute Auto 700 /uL (1100-4500); Lymphocytes Percent Auto 23.3 % (25-40); Mean Corpuscular HGB Conc 33.7 % (30-36); Mean Corpuscular Volume 98.1 fL (80-100); Monocytes Absolute Auto 300 /uL (0-900); Monocytes Percent Auto 10.8 % (3-14); Neutrophils Absolute Auto 1900 /uL (1500-7000); Neutrophils Percent Auto 62.6 % (50-75); Platelet Count 173 X10^3/uL (150-400); Red Blood Cell Count 4.32 X10^6/uL (4.0-5.2)
[2022-11-17 10:15] LABS: Alanine Aminotransferase 16 IU/L (<35); Albumin 3.9 g/dL (3.5-5.0); Albumin Globulin Ratio 1.6 (1.0-2.8); Alkaline Phosphatase 60 U/L (38-126); Aspartate Aminotransferase 23 IU/L (14-36); BUN Creatinine Ratio 22.9 (6-22); Bilirubin Total 0.8 mg/dL (0.2-1.3); Blood Urea Nitrogen 16 mg/dL (7-17); Carbon Dioxide 30 mmol/L (22-32); Chloride 105 mmol/L (98-107); Cholesterol 217 mg/dL (140-199); Estimated Glomerular Filt Rate > 60 mL/min (>60); Globulin 2.5 g/dL (1.7-4.1); Glucose 89 mg/dL (80-110); HDL Cholesterol 86 mg/dL (40-60); HEMOLYSIS < 15 (0-50); LDL Cholesterol Calculated 113 mg/dL (<100); Potassium 4.5 mmol/L (3.4-5.1); Sodium 140 mmol/L (137-145); Total Protein 6.4 g/dL (6.3-8.2); Triglycerides 90 mg/dL (35-150)
== END ==
PROVIDERS: PCP Family Medicine; Referring Provider Physician Assistant Medical; Visit Provider Physician Assistant Medical
DX: M05.9 Rheumatoid arthritis with rheumatoid factor, unspecified (principal); E78.2 Mixed hyperlipidemia; M06.9 Rheumatoid arthritis, unspecified; Z79.631 Long term (current) use of antimetabolite agent; Z85.3 Personal history of malignant neoplasm of breast
CPT/HCPCS: 36415; 80053; 80061; 85025

== ENCOUNTER → 2023-02-17 15:08 | Outpatient (CLI) | payer MEDICARE, SELFPAY | PROVIDERS: PCP Family Medicine; Referring Provider Family Medicine; Visit Provider Family Medicine | DX: Z23 Encounter for immunization (principal) | CPT/HCPCS: 90471; 90662 ==

== ENCOUNTER → 2023-03-17 08:02 | Outpatient (CLI) | payer MEDICARE, SELFPAY ==
[2023-03-17 09:50] LABS: Add Manual Diff / Slide Review NO; Basophils Absolute Auto 0 /uL (0-100); Basophils Percent Auto 0.8 % (0-2); Eosinophils Absolute Auto 0 /uL (0-450); Eosinophils Percent Auto 1.4 % (2-4); Hematocrit 41.9 % (36-46); Hemoglobin 14.3 g/dL (12.0-16.0); Lymphocytes Absolute Auto 700 /uL (1100-4500); Lymphocytes Percent Auto 20.5 % (25-40); Mean Corpuscular Hemoglobin 33.8 PG (26-34); Mean Corpuscular Volume 99.1 fL (80-100); Monocytes Absolute Auto 300 /uL (0-900); Monocytes Percent Auto 7.9 % (3-14); Neutrophils Absolute Auto 2400 /uL (1500-7000); Neutrophils Percent Auto 69.4 % (50-75); Platelet Count 202 X10^3/uL (150-400); Red Blood Cell Count 4.23 X10^6/uL (4.0-5.2); Red Cell Distribution Width 15.1 % (11.6-14.8); White Blood Cell Count 3.4 X10^3/uL (4.5-11.0)
[2023-03-17 10:10] LABS: Erythrocyte Sedimentation Rate 25 MM/HR (0-20)
[2023-03-17 10:21] LABS: Alanine Aminotransferase 18 IU/L (<35); Albumin 3.9 g/dL (3.5-5.0); Albumin Globulin Ratio 1.5 (1.0-2.8); Alkaline Phosphatase 67 U/L (38-126); Aspartate Aminotransferase 26 IU/L (14-36); BUN Creatinine Ratio 22.1 (6-22); Blood Urea Nitrogen 15 mg/dL (7-17); C-Reactive Protein Quant 1.1 mg/dL (<1.0); Calcium 9.6 mg/dL (8.4-10.2); Carbon Dioxide 28 mmol/L (22-32); Chloride 104 mmol/L (98-107); Estimated Glomerular Filt Rate > 60 mL/min (>60); Globulin 2.6 g/dL (1.7-4.1); Glucose 88 mg/dL (80-110); HEMOLYSIS < 15 (0-50); Potassium 4.5 mmol/L (3.4-5.1); Sodium 138 mmol/L (137-145); Total Protein 6.5 g/dL (6.3-8.2)
== END ==
PROVIDERS: PCP Family Medicine; Referring Provider Physician Assistant Medical; Visit Provider Physician Assistant Medical
DX: M05.9 Rheumatoid arthritis with rheumatoid factor, unspecified (principal)
CPT/HCPCS: 36415; 80053; 85025; 85651; 86140

== ENCOUNTER → 2023-06-04 07:52 | Outpatient (CLI) | payer MEDICARE, SELFPAY ==
[2023-06-04 09:02] LABS: Add Manual Diff / Slide Review NO; Basophils Absolute Auto 0 /uL (0-100); Basophils Percent Auto 0.9 % (0-2); Eosinophils Absolute Auto 100 /uL (0-450); Eosinophils Percent Auto 1.4 % (2-4); Hematocrit 42.1 % (36-46); Hemoglobin 14.2 g/dL (12.0-16.0); Lymphocytes Absolute Auto 900 /uL (1100-4500); Lymphocytes Percent Auto 19.1 % (25-40); Mean Corpuscular HGB Conc 33.6 % (30-36); Mean Corpuscular Hemoglobin 32.4 PG (26-34); Mean Corpuscular Volume 96.4 fL (80-100); Monocytes Absolute Auto 400 /uL (0-900); Monocytes Percent Auto 7.4 % (3-14); Neutrophils Absolute Auto 3500 /uL (1500-7000); Neutrophils Percent Auto 71.2 % (50-75); Platelet Count 209 X10^3/uL (150-400); Red Blood Cell Count 4.37 X10^6/uL (4.0-5.2); Red Cell Distribution Width 14.6 % (11.6-14.8); White Blood Cell Count 4.8 X10^3/uL (4.5-11.0)
[2023-06-04 09:24] LABS: Erythrocyte Sedimentation Rate 23 MM/HR (0-20)
[2023-06-04 09:32] LABS: Alanine Aminotransferase 20 IU/L (<35); Albumin Globulin Ratio 1.3 (1.0-2.8); Alkaline Phosphatase 69 U/L (38-126); Aspartate Aminotransferase 27 IU/L (14-36); BUN Creatinine Ratio 24.6 (6-22); Blood Urea Nitrogen 17 mg/dL (7-17); C-Reactive Protein Quant 0.7 mg/dL (<1.0); Calcium 9.5 mg/dL (8.4-10.2); Carbon Dioxide 26 mmol/L (22-32); Chloride 107 mmol/L (98-107); Estimated Glomerular Filt Rate > 60 mL/min (>60); Globulin 3.1 g/dL (1.7-4.1); Glucose 94 mg/dL (80-110); HEMOLYSIS < 15 (0-50); Potassium 4.2 mmol/L (3.4-5.1); Sodium 138 mmol/L (137-145); Total Protein 7.1 g/dL (6.3-8.2)
== END ==
PROVIDERS: PCP Family Medicine; Referring Provider Physician Assistant Medical; Visit Provider Physician Assistant Medical
DX: M05.9 Rheumatoid arthritis with rheumatoid factor, unspecified (principal)
CPT/HCPCS: 36415; 80053; 85025; 85651; 86140

== ENCOUNTER → 2023-07-14 07:42 | Outpatient (CLI) | payer MEDICARE, SELFPAY ==
[2023-07-14 08:37] LABS: Add Manual Diff / Slide Review NO; Basophils Absolute Auto 0 /uL (0-100); Basophils Percent Auto 0.6 % (0-2); Eosinophils Absolute Auto 100 /uL (0-450); Eosinophils Percent Auto 0.8 % (2-4); Hematocrit 43.5 % (36-46); Hemoglobin 14.7 g/dL (12.0-16.0); Lymphocytes Absolute Auto 1100 /uL (1100-4500); Lymphocytes Percent Auto 17.3 % (25-40); Mean Corpuscular HGB Conc 33.7 % (30-36); Mean Corpuscular Hemoglobin 32.7 PG (26-34); Monocytes Absolute Auto 500 /uL (0-900); Monocytes Percent Auto 7.6 % (3-14); Neutrophils Absolute Auto 4600 /uL (1500-7000); Neutrophils Percent Auto 73.7 % (50-75); Platelet Count 227 X10^3/uL (150-400); Red Blood Cell Count 4.49 X10^6/uL (4.0-5.2); White Blood Cell Count 6.3 X10^3/uL (4.5-11.0)
[2023-07-14 09:02] LABS: Alanine Aminotransferase 24 IU/L (<35); Albumin 3.8 g/dL (3.5-5.0); Albumin Globulin Ratio 1.2 (1.0-2.8); Alkaline Phosphatase 69 U/L (38-126); Aspartate Aminotransferase 32 IU/L (14-36); BUN Creatinine Ratio 25.4 (6-22); Bilirubin Total 1.5 mg/dL (0.2-1.3); Blood Urea Nitrogen 17 mg/dL (7-17); Calcium 9.3 mg/dL (8.4-10.2); Carbon Dioxide 29 mmol/L (22-32); Chloride 108 mmol/L (98-107); Estimated Glomerular Filt Rate > 60 mL/min (>60); Globulin 3.1 g/dL (1.7-4.1); Glucose 87 mg/dL (80-110); HEMOLYSIS < 15 (0-50); Potassium 4.9 mmol/L (3.4-5.1); Sodium 140 mmol/L (137-145); Total Protein 6.9 g/dL (6.3-8.2)
[2023-07-14 09:29] LABS: Thyroid Stimulating Hormone 1.62 uIU/mL (0.47-4.68)
== END ==
PROVIDERS: PCP Family Medicine; Referring Provider Physician Assistant Medical; Visit Provider Physician Assistant Medical
DX: M05.9 Rheumatoid arthritis with rheumatoid factor, unspecified (principal)
CPT/HCPCS: 36415; 80053; 84443; 85025

== ENCOUNTER → 2023-09-21 08:38 | Outpatient (CLI) | payer MEDICARE, SELFPAY ==
[2023-09-21 09:45] LABS: Add Manual Diff / Slide Review NO; Basophils Absolute Auto 0 /uL (0-100); Basophils Percent Auto 0.4 % (0-2); Eosinophils Absolute Auto 0 /uL (0-450); Eosinophils Percent Auto 1.1 % (2-4); Hematocrit 43.9 % (36-46); Hemoglobin 15.1 g/dL (12.0-16.0); Lymphocytes Absolute Auto 900 /uL (1100-4500); Lymphocytes Percent Auto 23.4 % (25-40); Mean Corpuscular HGB Conc 34.3 % (30-36); Mean Corpuscular Hemoglobin 33.7 PG (26-34); Mean Corpuscular Volume 98.3 fL (80-100); Monocytes Absolute Auto 400 /uL (0-900); Monocytes Percent Auto 9.8 % (3-14); Neutrophils Absolute Auto 2500 /uL (1500-7000); Neutrophils Percent Auto 65.3 % (50-75); Platelet Count 165 X10^3/uL (150-400); Red Blood Cell Count 4.46 X10^6/uL (4.0-5.2); Red Cell Distribution Width 15.2 % (11.6-14.8); White Blood Cell Count 3.9 X10^3/uL (4.5-11.0)
[2023-09-21 10:14] LABS: Alanine Aminotransferase 26 IU/L (<35); Albumin 3.9 g/dL (3.5-5.0); Albumin Globulin Ratio 1.6 (1.0-2.8); Alkaline Phosphatase 70 U/L (38-126); Aspartate Aminotransferase 38 IU/L (14-36); BUN Creatinine Ratio 15.7 (6-22); Bilirubin Total 0.8 mg/dL (0.2-1.3); Blood Urea Nitrogen 11 mg/dL (7-17); Calcium 8.6 mg/dL (8.4-10.2); Carbon Dioxide 29 mmol/L (22-32); Chloride 107 mmol/L (98-107); Estimated Glomerular Filt Rate > 60 mL/min (>60); Globulin 2.5 g/dL (1.7-4.1); Glucose 93 mg/dL (80-110); HEMOLYSIS < 15 (0-50); Sodium 141 mmol/L (137-145); Total Protein 6.4 g/dL (6.3-8.2)
== END ==
PROVIDERS: PCP Family Medicine; Referring Provider Family Medicine; Visit Provider Family Medicine
DX: K92.1 Melena (principal); R19.5 Other fecal abnormalities; E78.2 Mixed hyperlipidemia; M06.9 Rheumatoid arthritis, unspecified; Z79.631 Long term (current) use of antimetabolite agent
CPT/HCPCS: 80053; 85025

== ENCOUNTER → 2023-09-28 09:22 | Outpatient (CLI) | payer MEDICARE, SELFPAY | PROVIDERS: PCP Family Medicine; Visit Provider Family Medicine | DX: R05.8 Other specified cough (principal); J02.9 Acute pharyngitis, unspecified | CPT/HCPCS: 87070 ==

== ENCOUNTER → 2023-09-28 09:52 | Outpatient (CLI) | payer MEDICARE, SELFPAY ==
--- NOTE | 2023-09-28 09:53 | DI.RAD.S_ITS ---
PROCEDURE: XR CHEST 2V INDICATIONS: persistent cough TECHNIQUE: 2 views of the chest were acquired. COMPARISON: [facility], CR, XR CHEST 2V, 10/30/2018, 10:51. FINDINGS: Surgical changes and devices: None. Lungs and pleura: Lungs are clear. No pleural effusions or pneumothorax. Mediastinum: Mediastinal contours are normal. Heart size is normal. Bones and chest wall: Fusion instrumentation of the lumbar spine, partially visualized. IMPRESSION: No acute cardiopulmonary abnormality is seen. Dictated by: Griselda Lewis M.D. on 09/28/2023 at 11:14 Approved by: Griselda Lewis M.D. on 09/28/2023 at 11:16
== END ==
PROVIDERS: PCP Family Medicine; Referring Provider Family Medicine; Visit Provider Family Medicine
DX: R05.8 Other specified cough (principal); J02.9 Acute pharyngitis, unspecified; Z98.1 Arthrodesis status
CPT/HCPCS: 71046; 87070

== ENCOUNTER → 2023-12-07 07:46 | Outpatient (CLI) | payer MEDICARE, SELFPAY ==
--- NOTE | 2023-12-07 | DI.MG.S_ITS ---
BILATERAL DIGITAL SCREENING MAMMOGRAM 3D/2D WITH CAD POST LUMPECTOMY: 12/07/2023 CLINICAL: Routine screening. Personal history of right breast cancer. Comparison is made to exams dated: 11/04/2022 mammogram, 09/26/2020 mammogram, 09/26/2019 mammogram, 11/03/2021 mammogram, and 10/15/2021 mammogram - [facility]. There are scattered areas of fibroglandular density in both breasts (category b / 25%-50% glandular tissue). Current study was also evaluated with a Computer Aided Detection (CAD) system. There are benign post operative findings and biopsy clips in the right breast. No significant masses, calcifications, or other findings are seen in either breast. There has been no significant interval change. IMPRESSION: BENIGN There is no mammographic evidence of malignancy. A 1 year screening mammogram is recommended. This exam was interpreted at Station ID: [id number]. NOTE: For mammograms, a report in lay terms will be sent to the patient. Approximately 15% of breast malignancies will not be visualized mammographically. In the management of a palpable breast mass, a negative mammogram must not discourage biopsy of a clinically suspicious lesion. Electronically Signed By: Pedro ivey/gosia:12/07/2023 11:53:59 copy to: Ryan Rodney letter sent: Normal Exam ACR BI-RADS Category 2: Benign Finding(s) [id number]
== END ==
PROVIDERS: PCP Family Medicine; Referring Provider Family Medicine; Visit Provider Family Medicine
DX: Z12.31 Encounter for screening mammogram for malignant neoplasm of breast (principal); Z85.3 Personal history of malignant neoplasm of breast; R92.323 Mammographic fibroglandular density, bilateral breasts
CPT/HCPCS: 77063; 77067

== ENCOUNTER → 2024-03-08 08:24 | Outpatient (CLI) | payer MEDICARE, SELFPAY ==
[2024-03-08 09:08] LABS: Add Manual Diff / Slide Review NO; Basophils Absolute Auto 0 /uL (0-100); Basophils Percent Auto 0.5 % (0-2); Eosinophils Absolute Auto 0 /uL (0-450); Eosinophils Percent Auto 1.3 % (2-4); Hematocrit 43.7 % (36-46); Hemoglobin 14.6 g/dL (12.0-16.0); Lymphocytes Absolute Auto 700 /uL (1100-4500); Lymphocytes Percent Auto 23.8 % (25-40); Mean Corpuscular HGB Conc 33.5 % (30-36); Mean Corpuscular Hemoglobin 33.2 PG (26-34); Mean Corpuscular Volume 99.2 fL (80-100); Monocytes Absolute Auto 200 /uL (0-900); Neutrophils Absolute Auto 2100 /uL (1500-7000); Neutrophils Percent Auto 67.4 % (50-75); Platelet Count 177 X10^3/uL (150-400); Red Cell Distribution Width 15.6 % (11.6-14.8); White Blood Cell Count 3.1 X10^3/uL (4.5-11.0)
[2024-03-08 09:46] LABS: Alanine Aminotransferase 19 IU/L (<35); Albumin 3.9 g/dL (3.5-5.0); Albumin Globulin Ratio 1.6 (1.0-2.8); Alkaline Phosphatase 61 U/L (38-126); Aspartate Aminotransferase 32 IU/L (14-36); BUN Creatinine Ratio 18.2 (6-22); Blood Urea Nitrogen 14 mg/dL (7-17); C-Reactive Protein Quant < 0.5 mg/dL (<1.0); Calcium 9.3 mg/dL (8.4-10.2); Carbon Dioxide 27 mmol/L (22-32); Chloride 109 mmol/L (98-107); Estimated Glomerular Filt Rate > 60 mL/min (>60); Globulin 2.5 g/dL (1.7-4.1); Glucose 86 mg/dL (80-110); HEMOLYSIS < 15 (0-50); Potassium 4.1 mmol/L (3.4-5.1); Sodium 139 mmol/L (137-145); Total Protein 6.4 g/dL (6.3-8.2)
== END ==
PROVIDERS: PCP Family Medicine; Referring Provider Physician Assistant Medical; Visit Provider Physician Assistant Medical
DX: M05.9 Rheumatoid arthritis with rheumatoid factor, unspecified (principal)
CPT/HCPCS: 80053; 85025; 86140